=== PATIENT | male | born 1940 | race Caucasian/White ===

== ENCOUNTER 2017-10-16 17:52 | Outpatient (CLI) ==
[2016-07-21 18:36] VITALS: BMI 20.7
== END 2017-10-16 17:53 | disposition home or self-care (01) ==
LOC: NONPT 17:52
PROVIDERS: ATTEND General Practice
DX: E53.8 Deficiency of other specified B group vitamins (principal); F01.50 Vascular dementia, unspecified severity, without behavioral disturbance, psychotic disturbance, mood disturbance, and anxiety; I10 Essential (primary) hypertension; R31.9 Hematuria, unspecified; R68.89 Other general symptoms and signs
CPT/HCPCS: 36415; 80053; 80061; 82525; 83735; 84443; 85025

== ENCOUNTER 2017-12-31 14:09 | Outpatient (RCR) ==
[2016-07-21 18:36] VITALS: BMI 20.7
--- NOTE | 2018-01-01 15:27 | RS.OPPTEV2 ---
Date of Note: 12/31/17 Visit #: 1 Date of Evaluation: 12/31/17 Payer Source: MEDICARE Surgery Performed?: No Treatment Diagnosis: cerebrovascular small vessel disease, dementia, abnormality of gait History of Condition/Mechanism of Injury:: reports that pt has been having increased difficulty with amb and having frequent falls for past 2 years. Prior Level of Function.....Patient was independent with: Ambulation/Mobility Level of Function: pt amb in home short distances independently holding to furniture, requires assist with ADL's. pt has 2 steps to enter home without HR. Functional Limitations: Self Care, ADL's, Reaching, Carrying, Standing, Bending , Squatting, Ambulation, Community Access/Integration Current Subjective/complaints:: pt reports that he has trouble walking due to R knee pain and low back pain. pt's states pt stays on the couch all day and has "shaking"episodes when standing up after being on couch. Treatment Side (optional): N/A *Precautions: fall precautions as well as pt with dementia hx of wandering Medical History Medical History: Hypertension, Dementia, Arthritis Surgical History Comments:: CEA, hernia repair, appey, cataracts, hemmorhoids Smoking Status: Former smoker Hx Home Medications: melatonin, quentiaprine, memantine, clopidogrel, lexapro, aspirin, calcium, simvastatin, probiotic, Patient's Goals: to walk better and have less falls. Pain Assessment - Pain Description Pain Location: low back pain, R knee Pain Description: Aching, Chronic Current Pain Intensity: 4 Other Comments regarding Pain:: pt with aching pain in lumbar spine, pt with flexed posture, requires multiple verbal cues to sit up tall. Functional Outcome Measure Tinetti: 8 (71%) - G Codes & Severity Modifier G Codes & Modifier: mobility current CL. mobility goal CJ Source of G Code score: tinetti score Observation - Observation Posture: Forward Head, Rounded Shoulders, Increased Thoracic Kyphosis, Decreased Lumbar Lordosis Gait - Gait Pattern General Gait Pattern Observation: Crouched Gait, Shuffling Step, Decrease Stride Lngth (R), Decrease Stride Lngth (L) Gait Comments: pt amb with flexed posture, decreased step length and requires constant cues to keep walker close as well as to stand tall. General Range of Motion: BUE WFL's. LLE WFL's. RLE knee flex WFL's, ext -10 Muscle Strength: BUE 4+/5. LLE hip flex 4-/5, knee flex/ext 4-/5, ankle Df/PF 4 /5. RLE hip flex Palpation Palpation Findings: Tenderness Comments:: tenderness to palpation lumbar spine. Sensation - Sensation Right Upper Extremity: Intact/Normal Left Upper Extremity: Intact/Normal Right Lower Extremity: Intact/Normal Left Lower Extremity: Intact/Normal Balance - Sitting Balance Static Sitting Balance: Good Dynamic Sitting Balance: Fair - Standing Balance Static Standing Balance: Poor Dynamic Standing Balance: Poor - Comments Balance Assessment Comments: tinetti score 8. pt with flexed posture. Interventions - Exercise/Activities/Manual Therapy Exercises/Activities: pt performed AP, isometric hip add, LAQ, seated hip flex Manual Therapy: n/a HOME EXERCISE PROGRAM: pt given written HEP including AP, isometric hip add, LAQ , seated hip flex - Charges Timed Code Treatment Minutes: 52 Total Treatment Time: 60 Procedures billed for this date of service:: eval med EVALUATION COMPLEXITY LEVEL EVALUATION COMPLEXITY LEVEL: HISTORY: Medium (dementia, OA, HTN,), EXAM OF BODY SYSTEMS: Medium (pain, balance, gait, strength), CLINICAL PRESENTATION: Medium ( evolving), CLINICAL DECISION MAKING: Medium Assessment Assessment: pt presents with decreased strength, balance, gait safety. pt with difficulty recalling safety precautions due to cognitive status. Feel pt would benefit from skilled PT for therex for strengthening, balance and gait training to improve functional mobility Patient Education: Home Exercise Program, Education of Plan of Care Rehab Potential: Good Problems/Comments: Discussion with patient to try to sit in different chair at home to decrease LBP. Also advised pt to walk 3 x a day in home. Short Term Goals Goal #1: pt transfer sup to/from sit to/from stand CGA Goal to be met by: 01/21/18 Goal #2: pt amb with rwx in dept with improved posture, and no LOB CGA Goal to be met by: 01/21/18 Goal #3: pt with improved dyn stand balance as noted by tinetti score Goal to be met by: 01/21/18 Goal #4: Improved BLE strength 4/5 Goal to be met by: 01/21/18 Alf Goals Goal #1: pt amb from car to PT dept with rwx with no LOB SBA of Goal to be met by: 02/11/18 Goal #2: pt with improved R knee ext -5, to improve gait pattern Goal to be met by: 02/11/18 Goal #3: pt with improved dyn stand balance tinetti score 20/28 Goal to be met by: 02/11/18 Goal #4: pt/ independent with HEP Goal to be met by: 02/11/18 Plan - Treatment to be Provided Procedures: Therapeutic Exercises, Therapeutic Activity, Gait Training, Neuromuscular Rehab, Massage, Patient Education Modalities: Electrical Stimulation, Ultrasound/Phonophoresis, Cryotherapy, Hot Packs - Treatment Plan Frequency: 2-3x per week Duration: 6 weeks ORDER # VISITS AND/OR THROUGH DATE: 02/11/18 - Treatment Code (1) Impairment of balance Code(s): R26.89 - OTHER ABNORMALITIES OF GAIT AND MOBILITY (2) Gait difficulty Code(s): R26.9 - UNSPECIFIED ABNORMALITIES OF GAIT AND MOBILITY (3) General weakness Code(s): R53.1 - WEAKNESS (4) Low back pain Code(s): M54.5 - LOW BACK PAIN Qualifiers: Chronicity: chronic Back pain laterality: bilateral Sciatica presence: without sciatica Qualified Code(s): M54.5 - Low back pain; G89.29 - Other chronic pain (5) Right knee pain Code(s): M25.561 - PAIN IN RIGHT KNEE Qualifiers: Chronicity: chronic Qualified Code(s): M25.561 - Pain in right knee; G89.29 - Other chronic pain
== END 2018-01-01 23:59 | disposition short-term general hospital (02) ==
PROVIDERS: ATTEND Physician Assistant
DX: R26.89 Other abnormalities of gait and mobility (principal); R53.1 Weakness; M54.5 Low back pain; M25.561 Pain in right knee; G89.29 Other chronic pain

== ENCOUNTER 2018-01-26 11:00 | Outpatient (RCR) ==
[2016-07-21 18:36] VITALS: BMI 20.7
--- NOTE | 2018-01-02 15:16 | RS.OPPTDN ---
Subjective Date of Note: 01/02/18 Visit #: 2 Date of Evaluation: 12/31/17 Payer Source: MEDICARE Treatment Diagnosis: cerebrovascular small vessel disease, dementia, abnormality of gait Current Subjective/complaints:: Patient pleasant,reports his legs get tired easily,and the R knee hurts at times,pointing to te medial aspect of the R knee. *Precautions: fall precautions as well as pt with dementia hx of wandering Pain Assessment - Pain Description Pain Location: R knee Pain Description: Dull, Aching Current Pain Intensity: not rated Interventions - Exercise/Activities/Manual Therapy Exercises/Activities: 45 mins. total pf therapeutic exercises and gait training, emphasizing placement of R/W with transfers and when changing direction.LE exercises of 3/15 reps . both LE's on leg press @ 30 # resistance for 2 sets,15 # for one set.2/15 LAQ's with 2 # resistance.Transfer and gait training with R/ W for approx. 40 ' x 3 with min assist , mod. assist with turning.Seated exercises of scapular pro/retraction motion with small bolster up/down the spine. Total minutes of Exercise: 45 Manual Therapy: n/a Total minutes of Manual Therapy: 0 HOME EXERCISE PROGRAM: pt given written HEP including AP, isometric hip add, LAQ , seated hip flex - Charges Timed Code Treatment Minutes: 45 Total Treatment Time: 45 Procedures billed for this date of service:: ex 3 Assessment: Patient requires cues for posture and safety frequently due to history of dementia,tends to walk with the walker too far in front of him.He is completely outside the base of walker with turning.He also needs cues to stand more erect.He is pleasant and cooperative ,but forgetful regarding safety issues. Patient Education: Body/Joint mechanics, Home Safety Short Term Goals Goal #1: pt transfer sup to/from sit to/from stand CGA Goal to be met by: 01/21/18 Goal #2: pt amb with rwx in dept with improved posture, and no LOB CGA Goal to be met by: 01/21/18 Goal #3: pt with improved dyn stand balance as noted by tinetti score 16/28 Goal to be met by: 01/21/18 Goal #4: Improved BLE strength 4/5 Goal to be met by: 01/21/18 Manager [employer] Goals Goal #1: pt amb from car to PT dept with rwx with no LOB SBA of Goal to be met by: 02/11/18 Goal #2: pt with improved R knee ext -5, to improve gait pattern Goal to be met by: 02/11/18 Goal #3: pt with improved dyn stand balance tinetti score Goal to be met by: 02/11/18 Goal #4: pt/ independent with HEP Goal to be met by: 02/11/18 Plan PLAN OF CARE EXPIRES ON:: 02/11/18 ORDER # VISITS AND/OR THROUGH DATE: 02/11/18 PLAN: Continue PT to strengthen core and LE's for safer gait .
--- NOTE | 2018-01-06 15:04 | RS.OPPTDN ---
Subjective Date of Note: 01/06/18 Visit #: 3 Date of Evaluation: 12/31/17 Payer Source: MEDICARE Treatment Diagnosis: cerebrovascular small vessel disease, dementia, abnormality of gait Current Subjective/complaints:: Patient reports the R knee was sore from exercises done last session ,but ," not too bad . " *Precautions: fall precautions as well as pt with dementia hx of wandering Pain Assessment - Pain Description Pain Description: muscle soreness in legs Interventions - Exercise/Activities/Manual Therapy Exercises/Activities: 45 mins. total pf therapeutic exercises and gait training, emphasizing placement of R/W with transfers and when changing direction.LE exercises of 3/15 reps . both LE's on leg press @ 15 # resistance for 5 sets,15 # for one set.2/15 LAQ's with 2 # resistance.Transfer and gait training with R/ W for approx. 80 ' x 2 with min assist , min assist with turning.Seated exercises of scapular pro/retraction motion with small bolster up/down the spine ,using green theraband for resistance.Seated overhead flexion of UE's using 1 # wand ,3 / 10 reps.Transfers into automobile with min.assist of 1,cues to place hips onto seat before placing his foot into the vehicle. Total minutes of Exercise: 45 Manual Therapy: n/a Total minutes of Manual Therapy: 0 HOME EXERCISE PROGRAM: pt given written HEP including AP, isometric hip add, LAQ , seated hip flex - Charges Timed Code Treatment Minutes: 45 Total Treatment Time: 50 Procedures billed for this date of service:: ex 3 Assessment: Patient tolerates exercises fairly well today ,cues to stay on task due to dementia.He also needs cues to step closer to walker for more energy efficient gait and more erect posture. Patient Education: Body/Joint mechanics, Home Safety, Education of Plan of Care Short Term Goals Goal #1: pt transfer sup to/from sit to/from stand CGA Goal to be met by: 01/21/18 Progress towards Goal:: Progressing Goal #2: pt amb with rwx in dept with improved posture, and no LOB CGA Goal to be met by: 01/21/18 Progress towards Goal:: Progressing Goal #3: pt with improved dyn stand balance as noted by tinetti score Goal to be met by: 01/21/18 Goal #4: Improved BLE strength 4/5 Goal to be met by: 01/21/18 [employer]ing Production Manager Goals Goal #1: pt amb from car to PT dept with rwx with no LOB SBA of Goal to be met by: 02/11/18 Goal #2: pt with improved R knee ext -5, to improve gait pattern Goal to be met by: 02/11/18 Goal #3: pt with improved dyn stand balance tinetti score Goal to be met by: 02/11/18 Goal #4: pt/ independent with HEP Goal to be met by: 02/11/18 Plan PLAN OF CARE EXPIRES ON:: 02/11/18 ORDER # VISITS AND/OR THROUGH DATE: 02/11/18 PLAN: Continue PT to increase LE and trunk strength for safer transfers and gait.
--- NOTE | 2018-01-12 15:24 | RS.OPPTDN ---
Subjective Date of Note: 01/12/18 Visit #: 4 Date of Evaluation: 12/31/17 Payer Source: MEDICARE Treatment Diagnosis: cerebrovascular small vessel disease, dementia, abnormality of gait Current Subjective/complaints:: Patient pleasant.He does c/o R knee soreness today ,pointing to the medial aspect of the knee.His reports he fell over the weekend without injury.He does have bruised area on the posterior left thigh. *Precautions: fall precautions as well as pt with dementia hx of wandering Pain Assessment - Pain Description Pain Description: Aching Current Pain Intensity: unable to rate Interventions - Exercise/Activities/Manual Therapy Exercises/Activities: 45 mins. total pf therapeutic exercises, baalnce exercises ,and gait training,emphasizing placement of R/W with transfers and when changing direction.LE exercises of 3/15 reps . with 2 # ,seated hip flexion, followed by UE wand exercises of overhead flexion for trunk extension.Standing / reaching for cones with walker and min. assist.Gait training with R/W and minn.assist of 1 ,cues to stand closer to walker and extend the trunk. Total minutes of Exercise: 45 Manual Therapy: n/a Total minutes of Manual Therapy: 0 HOME EXERCISE PROGRAM: pt given written HEP including AP, isometric hip add, LAQ , seated hip flex - Charges Timed Code Treatment Minutes: 45 Total Treatment Time: 50 Procedures billed for this date of service:: ex 3 Assessment: Patient has increased flexion at knees and trunk today,fatigues more easily with exercises tyoday.His safety awareness is poor today,requiring more cues for hand placement before standing and also to step closer to walker. Patient Education: Education of Plan of Care Short Term Goals Goal #1: pt transfer sup to/from sit to/from stand CGA Goal to be met by: 01/21/18 Progress towards Goal:: Progressing Goal #2: pt amb with rwx in dept with improved posture, and no LOB CGA Goal to be met by: 01/21/18 (flexed at knees and waist today) Progress towards Goal:: No Change Goal #3: pt with improved dyn stand balance as noted by tinetti score 16/28 Goal to be met by: 01/21/18 Goal #4: Improved BLE strength 4/5 Goal to be met by: 01/21/18 Forensic Locksmith Goals Goal #1: pt amb from car to PT dept with rwx with no LOB SBA of Goal to be met by: 02/11/18 Goal #2: pt with improved R knee ext -5, to improve gait pattern Goal to be met by: 02/11/18 Progress towards goal: No Change Goal #3: pt with improved dyn stand balance tinetti score 20/ Goal to be met by: 02/11/18 Goal #4: pt/ independent with HEP Goal to be met by: 02/11/18 Plan PLAN OF CARE EXPIRES ON:: 02/11/18 ORDER # VISITS AND/OR THROUGH DATE: 02/11/18 PLAN: Continue PT to strengthen core and LE's for safer gait ,reduce risks of falls.
--- NOTE | 2018-01-15 15:22 | RS.OPPTDN ---
Subjective Date of Note: 01/15/18 Visit #: 5 Date of Evaluation: 12/31/17 Payer Source: MEDICARE Treatment Diagnosis: cerebrovascular small vessel disease, dementia, abnormality of gait Current Subjective/complaints:: Patient has more flexed psture ,increased difficulty with gait today.Patient also appears more disoriented at times today. *Precautions: fall precautions as well as pt with dementia hx of wandering Interventions - Exercise/Activities/Manual Therapy Exercises/Activities: 45 mins. total ,gait training with rolling walker,100 ' x 2.Ther. ex including leg press @ 15 # resistance3/15 reps.Seated hip flexion and LAQ's and 2 # rsistance.UE wand exercises for over head flexion .5 mins. of ball toss overhead for trunk extension and reducing flexed posture .Auto transfers withCGA of 1,cues for safety. Total minutes of Exercise: 45 Manual Therapy: n/a Total minutes of Manual Therapy: 0 HOME EXERCISE PROGRAM: pt given written HEP including AP, isometric hip add, LAQ , seated hip flex - Charges Timed Code Treatment Minutes: 45 Total Treatment Time: 55 Procedures billed for this date of service:: ex 2,gait training Assessment: Patient has increased difficulty following commands today, especially for safe use of walker.he is currently high risk for falls if unassisted due to LE wekness and flexed posture when standing.He c/o R medial knee pain with walking or light resistance on leg press. Short Term Goals Goal #1: pt transfer sup to/from sit to/from stand CGA Goal to be met by: 01/21/18 Progress towards Goal:: No Change Goal #2: pt amb with rwx in dept with improved posture, and no LOB CGA Goal to be met by: 01/21/18 (flexed at knees and waist today) Progress towards Goal:: No Change Goal #3: pt with improved dyn stand balance as noted by tinetti score 28 Goal to be met by: 01/21/18 Goal #4: Improved BLE strength 4/5 Goal to be met by: 01/21/18 Progress towards Goal:: No Change [facility] Goals Goal #1: pt amb from car to PT dept with rwx with no LOB SBA of Goal to be met by: 02/11/18 Goal #2: pt with improved R knee ext -5, to improve gait pattern Goal to be met by: 02/11/18 Progress towards goal: No Change Goal #3: pt with improved dyn stand balance tinetti score Goal to be met by: 02/11/18 Goal #4: pt/ independent with HEP Goal to be met by: 02/11/18 Plan PLAN OF CARE EXPIRES ON:: 02/11/18 ORDER # VISITS AND/OR THROUGH DATE: 02/11/18 PLAN: Continue PT,educate on patient safety and exercises as patient can tolerate.He is unable to recall HEP independently due to dementia.
--- NOTE | 2018-01-19 15:19 | RS.OPPTDN ---
Subjective Date of Note: 01/19/18 Visit #: 6 Date of Evaluation: 12/31/17 Payer Source: MEDICARE Treatment Diagnosis: cerebrovascular small vessel disease, dementia, abnormality of gait Current Subjective/complaints:: Patient reports feeling better today,appears more alert than last session .His reports he did not have any falls over the weekend. *Precautions: fall precautions as well as pt with dementia hx of wandering Interventions - Exercise/Activities/Manual Therapy Exercises/Activities: 50 mins. total ,gait training with rolling walker,100 ' x 2.Ther. ex including leg press @ 30,45 and # resistance3/10 reps. 1 set of 10 reps @ 60 #Seated hip flexion and LAQ's and 2 # rsistance.UE wand exercises for over head flexion ,and postural pullbacks using black theraband.Auto transfers with CGA of 1,cues for safety. Total minutes of Exercise: 50 Manual Therapy: n/a Total minutes of Manual Therapy: 0 HOME EXERCISE PROGRAM: pt given written HEP including AP, isometric hip add, LAQ , seated hip flex - Charges Timed Code Treatment Minutes: 50 Total Treatment Time: 60 Procedures billed for this date of service:: gait,ther. act,ex 1 Assessment: Patient has improved trunk extension ,also tolerates increased resistance with minimal R knee soreness,which lessened as the exercises progressed.He still requires cues to step closer to R/W , but now self - corrects at times without verbal cues.He is motivated to improve.HEP discussed with as patient has dementia,and difficulty with recall of exercises. Patient Education: Education of diagnosis, Body/Joint mechanics, Home Exercise Program, Home Safety, Activity Modification, Education of Plan of Care Patient demonstrates compliance with HEP?: Yes Short Term Goals Goal #1: pt transfer sup to/from sit to/from stand CGA Goal to be met by: 01/21/18 Progress towards Goal:: Progressing Goal #2: pt amb with rwx in dept with improved posture, and no LOB CGA Goal to be met by: 01/21/18 (flexed at knees and waist today) Progress towards Goal:: Progressing Goal #3: pt with improved dyn stand balance as noted by tinetti score 16/28 Goal to be met by: 01/21/18 Progress towards Goal:: Progressing Goal #4: Improved BLE strength 4/5 Goal to be met by: 01/21/18 Progress towards Goal:: Progressing Correction Goals Goal #1: pt amb from car to PT dept with rwx with no LOB SBA of Goal to be met by: 02/11/18 Goal #2: pt with improved R knee ext -5, to improve gait pattern Goal to be met by: 02/11/18 Progress towards goal: No Change Goal #3: pt with improved dyn stand balance tinetti score Goal to be met by: 02/11/18 Goal #4: pt/ independent with HEP Goal to be met by: 02/11/18 Progress towards goal: Progressing Plan PLAN OF CARE EXPIRES ON:: 02/11/18 ORDER # VISITS AND/OR THROUGH DATE: 02/11/18 PLAN: Continue PT to educate and patient on home safety and energy conservation for safer transfers and gait.
--- NOTE | 2018-01-22 09:21 | RS.CXNS ---
Date of scheduled appointment: 01/22/18 Type: Cancel Reason for Cancel/NS: Schedule conflict( called ).
--- NOTE | 2018-01-26 12:01 | RS.OPPTDN ---
Subjective Date of Note: 01/26/18 Visit #: 7 Date of Evaluation: 12/31/17 Payer Source: MEDICARE Treatment Diagnosis: cerebrovascular small vessel disease, dementia, abnormality of gait Current Subjective/complaints:: Patient 's present ,we discussed POC,as patient progress is limited due to dementia.She is very supportive ,plan to see patient one more session,review all goals,give copies of HEP,do balance assessment. *Precautions: fall precautions as well as pt with dementia hx of wandering Interventions - Exercise/Activities/Manual Therapy Exercises/Activities: 50 mins. total ,gait training with rolling walker , progressed to straight cane,UE /LE strengthening with 3 # wand for UE's,3 # weight for LE's.Multiple sit to stand with CGA of 1,then balance/reaching activities using cones with gait belt and CGAof 1.Reviewed posture with present. Total minutes of Exercise: 50 Manual Therapy: n/a Total minutes of Manual Therapy: 0 HOME EXERCISE PROGRAM: pt given written HEP including AP, isometric hip add, LAQ , seated hip flex - Charges Timed Code Treatment Minutes: 50 Total Treatment Time: 60 Procedures billed for this date of service:: ex,gait,ther. act. Assessment: Patient progressing,has better standing posture,tolerates using cane well,less cues for safety with transfers.His is present today,very supportive and motivated to help.She has good understanding of safety and HEP. Patient Education: Body/Joint mechanics, Home Exercise Program, Home Safety, Activity Modification, Education of Plan of Care Patient demonstrates compliance with HEP?: Yes (with assistance) Short Term Goals Goal #1: pt transfer sup to/from sit to/from stand CGA Goal to be met by: 01/21/18 Progress towards Goal:: Partially Met Goal #2: pt amb with rwx in dept with improved posture, and no LOB CGA Goal to be met by: 01/21/18 Progress towards Goal:: Partially Met Goal #3: pt with improved dyn stand balance as noted by tinetti score 16/28 Goal to be met by: 01/21/18 Progress towards Goal:: Progressing Goal #4: Improved BLE strength 4/5 Goal to be met by: 01/21/18 Progress towards Goal:: Partially Met [facility] Goals Goal #1: pt amb from car to PT dept with rwx with no LOB SBA of Goal to be met by: 02/11/18 Progress towards goal: Progressing Goal #2: pt with improved R knee ext -5, to improve gait pattern Goal to be met by: 02/11/18 (due to arthritis ) Progress towards goal: No Change Goal #3: pt with improved dyn stand balance tinetti score 20/28 Goal to be met by: 02/11/18 Progress towards goal: Progressing Goal #4: pt/ independent with HEP Goal to be met by: 02/11/18 Progress towards goal: Partially Met Plan PLAN OF CARE EXPIRES ON:: 02/11/18 ORDER # VISITS AND/OR THROUGH DATE: 02/11/18 PLAN: Continue PT ,initiate D/C plan next session.
--- NOTE | 2018-01-29 11:01 | RS.OPPTDC ---
Date of Discharge: 01/26/18 Date of Evaluation: 12/31/17 Number of Visits: 7 Treatment Diagnosis: cerebrovascular small vessel disease, dementia, abnormality of gait Current Level of Function: tinetti score 13/28 improved from 03/31 upon eval. pt amb with rwx progressing to cane with CGA. pt transfers sit to/from stand CGA. pt continued difficulty with carryover of instructions due to cognitive deficits. Current Complaints/Gains: pt and feel pt has improved and states she is helping him with HEP and amb. pt requested to dc PT as of 01/26/18 Functional Outcome Measure Tinetti: 13 (54%) - G Codes & Severity Modifier G Codes & Modifier: mobility goal CJ. mobility DC CK Source of G Code score: tinetti score Observation - Observation Posture: Forward Head, Rounded Shoulders, Increased Thoracic Kyphosis, Decreased Lumbar Lordosis Handedness: Right Gait - Gait Pattern General Gait Pattern Observation: Crouched Gait, Shuffling Step, Decrease Stride Lngth (R), Decrease Stride Lngth (L) Gait Comments: pt amb with rwx and progressed to cane with CGA. General Range of Motion: WFL's Muscle Strength: WFL's Interventions - Exercise/Activities/Manual Therapy Exercises/Activities: n/a Manual Therapy: n/a HOME EXERCISE PROGRAM: pt given written HEP including AP, isometric hip add, LAQ , seated hip flex - Charges Timed Code Treatment Minutes: n/a Total Treatment Time: n/a Procedures billed for this date of service:: n/a Assessment Assessment: pt progressing toward goals. pt progressed with balance, gait, strength. pt continues to be limited due to cognitive deficits. Patient Education: Home Exercise Program, Education of Plan of Care Rehab Potential: Good Short Term Goals Goal #1: pt transfer sup to/from sit to/from stand CGA Goal to be met by: 01/21/18 Progress towards Goal:: Partially Met Goal #2: pt amb with rwx in dept with improved posture, and no LOB CGA Goal to be met by: 01/21/18 Progress towards Goal:: Partially Met Goal #3: pt with improved dyn stand balance as noted by tinetti score 1628 Goal to be met by: 01/21/18 Progress towards Goal:: Progressing Goal #4: Improved BLE strength 4/5 Goal to be met by: 01/21/18 Progress towards Goal:: Partially Met [facility] Goals Goal #1: pt amb from car to PT dept with rwx with no LOB SBA of Goal to be met by: 02/11/18 Progress towards goal: Progressing Goal #2: pt with improved R knee ext -5, to improve gait pattern Goal to be met by: 02/11/18 (due to arthritis ) Progress towards goal: No Change Goal #3: pt with improved dyn stand balance tinetti score Goal to be met by: 02/11/18 Progress towards goal: Progressing Goal #4: pt/ independent with HEP Goal to be met by: 02/11/18 Progress towards goal: Partially Met Plan Reason for Discharge:: Maximum Potential Met
== END 2018-01-31 23:59 ==
PROVIDERS: ATTEND Physician Assistant
DX: R26.89 Other abnormalities of gait and mobility (principal)

== ENCOUNTER 2018-04-17 15:16 | Outpatient (CLI) | payer OTHER ==
[2016-07-21 18:36] VITALS: BMI 20.7
== END 2018-04-17 15:17 | disposition home or self-care (01) ==
LOC: FCC-LAB 15:16
PROVIDERS: ATTEND General Practice
DX: I10 Essential (primary) hypertension (principal); I65.29 Occlusion and stenosis of unspecified carotid artery; R68.89 Other general symptoms and signs; F52.8 Other sexual dysfunction not due to a substance or known physiological condition; F01.50 Vascular dementia, unspecified severity, without behavioral disturbance, psychotic disturbance, mood disturbance, and anxiety; E53.8 Deficiency of other specified B group vitamins; Z79.899 Other long term (current) drug therapy
CPT/HCPCS: 36415; 80053; 80061; 81001; 85025; 87086; 87186

== ENCOUNTER 2018-04-29 13:03 | Inpatient (IN) | payer OTHER ==
--- NOTE | 2018-04-29 14:18 | CT ---
EXAM: CT THORAX HISTORY: Cough. Labored breathing. TECHNIQUE: CT thorax without intravenous contrast. Multiplanar images presented. COMPARISON: 06/13/2016 FINDINGS: Heart size is normal. No pericardial effusion. Moderately severe atherosclerotic disease. 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 Chronically elevated right hemidiaphragm. There is mild increased density and a few discoid opacitie s in the right lower lobe which may be related atelectasis from the diaphragmatic elevation. Minimal pneumonia at this level not completely excluded. Lungs are otherwise clear. Normal vascularity. N o pleural fluid or pneumothorax. The bones reveal degenerative disc and facet disease of the thoracic spine. IMPRESSION: 1. Questionable subtle pneumonia in the right base versus atelectasis from a chronically elevated ri ght hemidiaphragm. No pleural fluid or vascular congestion. 2. Moderately severe atherosclerosis. 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
--- NOTE | 2018-04-29 15:23 | ED.PDOC ---
General ED Provider: Dr. CARISSA POLO Chief Complaint: Weakness Stated Complaint: GENERALIZED WEAKNESS /FAILURE TO THRIVE Time Seen by Physician: 13:00 Mode of Arrival: Walk-In Information Source: Family Exam Limitations: No limitations [facility] and Triage Documentation Reviewed and Agree: Yes Does patient meet sepsis criteria?: No System Inflammatory Response Syndrome: Not Applicable Sepsis Protocol: For patient's 13 years and over: Temp is 96.8 and below OR 101 and greater Pulse >90 BPM Resp >20/minute Acutely Altered Mental Status Are patient's symptoms suggestive of a new infection, such as: -Pneumonia -Skin, Soft Tissue -Endocarditis -UTI -Bone, Joint Infection -Implantable Device -Acute Abdominal Infection -Wound Infection -Meningitis -Blood Stream Catheter Infection -Unknown Neurological Complaint Exam - Weakness Complaint/Exam Last Known Well: FAILURE TO THRIVE , FOR 1 YEAR Onset: Gradual Duration: 1 YEAR Symptoms Are: Still present Timing: Constant Episodes Lasting: Weeks Initial Severity: Moderate Current Severity: Moderate Character: Reports: Weak Aggravating: Reports: None Alleviating: Reports: None Associated Signs and Symptoms: Denies: Nausea, Vomiting, Diaphoresis, Tinnitus, Chest pain, Short of air, Palpitations, Unsteady gait, GI blood loss, Visual changes, Decreased oral intake, Change in medication, Change in diet, OTC meds, Loss of balance Related History: Similar episode Cardiac Risk Factors: Reports: None CVA Risk Factors: Reports: None Related Surgical History: Reports: None JVD Present: No Carotid Bruit Present: No [place] Coma Scale (see protocol): 15 Nystagmus Present: No Gag Reflex Present: Yes Meningeal Signs Positive: No Focal Weakness: Present: None Focal Sensory Loss: Present: None Gait: Unable [id number]: Normal Findings Babinski Sign: Negative Right, Negative Left Differential Diagnoses: Dysrhythmia, Hypovolemia, Metabolic abnormalities, Vasovagal reaction Quality Indicators for Cardiac Chest Pain: EKG in 10min. Quality Indicators for AMI: EKG in 10min. Quality Indicator For Non-Traumatic Chest Pain/Syncope: EKG Performed Review of Systems - Review Of Systems Constitutional: Reports: Malaise, Weakness Eyes: Reports: No symptoms Ears, Nose, Mouth, Throat: Reports: No symptoms Respiratory: Reports: No symptoms Cardiac: Reports: No symptoms GI: Reports: No symptoms : Reports: No symptoms Musculoskeletal: Reports: No symptoms Skin: Reports: No symptoms Neurological: Reports: No symptoms Endocrine: Reports: No symptoms Hematologic/Lymphatic: Reports: No symptoms All Other Systems: Reviewed and Negative Past Medical History - Past Medical History Previously Healthy: No Endocrine: Reports: Unknown Cardiovascular: Reports: Unknown Respiratory: Reports: None Hematological: Reports: None Gastrointestinal: Reports: None Genitourinary: Reports: None Neuro/Psych: Reports: None Musculoskeletal: Reports: None Cancer: Reports: None - Surgical History General Surgical History: Reports: Unknown - Family History Family History: Reports: Unknown - Social History Smoking Status: Former smoker Hx Substance Use: No Alcohol Screening: None Physical Exam - Physical Exam Appearance: Well-appearing, No pain distress, Well-nourished Eyes: JAMIE, EOMI, Conjunctiva clear ENT: Dry mucosa Respiratory: Airway patent, Breath sounds clear, Breath sounds equal, Respirations nonlabored Cardiovascular: RRR, Pulses normal, No rub, No murmur GI/: Soft, Nontender, No masses, Bowel sounds normal, No Organomegaly Musculoskeletal: Normal strength, ROM intact, No edema, No calf tenderness Skin: Warm, Dry, Normal color Neurological: Sensation intact, Motor intact, Reflexes intact, Cranial nerves intact, Alert, Oriented Psychiatric: Affect appropriate, Mood appropriate Interpretation - Radiology Interpretation Radiology Interpretation By: Radiologist Radiology Results: No acute changes (QUESTIONABLE PNEUMONIA) Critical Care Note - Critical Care Note Total Time (mins): 0 Course - Course Hematology/Chemistry: 04/29/18 13:35 04/29/18 13:35 Orders, Labs, Meds: Lab Review 04/29/18 04/29/18 04/29/18 13:35 13:35 14:10 WBC 6.11 RBC 5.09 Hgb 13.8 L Hct 42.6 MCV 83.7 MCH 27.1 MCHC 32.4 RDW Coeff of Sea 15.1 H Plt Count 259 Immature Gran % (Auto) 0.2 Neut % (Auto) 36.8 Lymph % (Auto) 48.6 [place] % (Auto) 8.7 Eos % (Auto) 4.9 Baso % (Auto) 0.8 Immature Gran # (Auto) 0.0 Neut # (Auto) 2.3 Lymph # (Auto) 3.0 [place] # (Auto) 0.5 Eos # (Auto) 0.3 Baso # (Auto) 0.1 Sodium 141.6 Potassium 3.68 Chloride 107.5 H Carbon Dioxide 27.9 Anion Gap 9.88 BUN 17.0 Creatinine 1.45 H Estimated GFR (MDRD) 47.00 BUN/Creatinine Ratio 11.72 Glucose 132.4 H Calcium 9.46 Total Bilirubin 0.35 AST 21.5 ALT 13.6 Alkaline Phosphatase 43.1 L Total Protein 7.09 Albumin 4.15 Globulin 2.94 Albumin/Globulin Ratio 1.41 Urine Color Yellow Urine Clarity Clear Urine pH 6.0 Ur Specific [place] >=1.030 Urine Protein Trace Urine Glucose (UA) Negative Urine Ketones Negative Urine Blood Trace-intact Urine Nitrite Positive Urine Bilirubin Negative Urine Urobilinogen 0.2 Ur Leukocyte Esterase 2+ Urine Microscopic RBC 0-2 Urine Microscopic WBC Tntc Ur Squamous Epith Cells Not present Urine Bacteria 1+ Urine Mucus 3+ Orders Category Date Time Status EKG-(ED ONLY) Stat CARDIO 04/29/18 13:25 Completed CBC W/ AUTO DIFF Stat LAB 04/29/18 13:35 Completed COMPREHENSIVE METABOLIC PANEL Stat LAB 04/29/18 13:35 Completed URINALYSIS C & S IF INDICATED Stat LAB 04/29/18 14:10 Completed URINE CULTURE Stat LAB 04/29/18 14:[address] CHEST W/O CONTRAST Stat RADS 04/29/18 13:25 Completed Vital Signs: Temp Pulse Resp BP Pulse Ox 04/29/18 13:03 97.6 F 117 H 20 115/66 95 Departure - Departure Time of Disposition: 15:23 Disposition: ADMITTED INPATIENT Discharge Problem: Weakness UTI (urinary tract infection) Qualifiers: Urinary tract infection type: site unspecified Hematuria presence: without hematuria Qualified Code(s): N39.0 - Urinary tract infection, site not specified Failure to thrive Qualifiers: Failure to thrive age range: in adult Qualified Code(s): R62.7 - Adult failure to thrive Instructions: Urinary Tract Infection in Men (ED) Condition: Good Pt referred to PMD for follow-up: Yes IPMP verified?: No Allergies/Adverse Reactions: Allergies No Known Allergies Allergy (Verified 04/29/18 13:14) Home Medications: Ambulatory Orders Cholecalciferol (Vitamin D3) [Vitamin D] 1 cap PO DAILY 06/01/13 Levomefolate/B6/B12/Algal Oil [Metanx Capsule] 1 tab PO DAILY 06/01/13 Aspirin [Aspirin Chewable] 81 mg PO DAILYWM 12/26/13 Pantoprazole Sodium [Protonix] 40 mg PO QDAC 12/26/13 Calcium Carbonate [Calcium] 500 mg PO DAILY #2 02/26/16 Medroxyprogesterone Acetate 10 mg PO DAILY 10/09/16 Vitamin B Complex Vit C No.4 [Super B Complex] 150 mg PO DAILY 01/13/17 Cimetidine [Tagamet Hb] 300 mg PO BID 02/11/18
[2018-04-29] MEDS ORDERED: SODIUM CHLORIDE IV SCH (15:30)
[2018-04-29] MEDS ORDERED: TYLENOL PO PRN (15:30)
[2018-04-29] MEDS ORDERED: ROCEPHIN ONE (15:53)
[2018-04-29] MEDS: ROCEPHIN 1 GM in SODIUM CHLORIDE 50 ML IV SCH (15:58)
[2018-04-29 16:39] VITALS: BMI 23.3
[2018-04-29] MEDS: SODIUM CHLORIDE 1,000 ML IV SCH (16:45)
--- NOTE | 2018-04-29 17:29 | PCM ---
- Chief Complaint Chief Complaint: Dementia, UTI, confusion (Chronic), Possible pneumonia. - History of Present Illness History of Present Illness: 77 yr old WM presented to ER on 04/29/18 with worsening fatigue, cognition, confusion, weakness. present in ER, has not been at bedside in hospital. I saw patient 04/29/18 in Room 122 early evening. He was seen in ER 1300 walk in with family. SIRS negative. ER noted FTT 1 year, gradual, present worsening over weeks to months. Weakness, w/o N/V/D, diaphoresis, tinnitus, chest pain, SOA, MORENO, PND, Orthopnea. No change in diet, no change in OTC meds, no travel. No loss of balance, no falls. Lives home with . Malaise and weakness progressing over last 1 year rapidly over last 1 week. Labs in ER showed normal WBC 6.11, mild anemia 13.8, 42.6 hct, plt 259. CMP showed sodium 141,6, K+ 3.68, cl 107.5. BUN 17 and Creatinine 1.45 (chronic and stable). Glucose was 132.4. UA showed + 2+ LE, Microscopic WBC, urine bact, mucus, +Nit, trace blood, SG 1.030. Contacted me at 15:23, I admitted him as inpatient to the hospital. Afebrile pulse was 117, RR 20, BP stable at 115/66 and WBC normal as above. Started on rocephin, reasonable to continue. Urine culture ordered. CT chest ordered w/ questionable subtle pneuomnia in right base versus atelectasis from chronically elevated right hemidiaphragm. NO plueral fluid. MOderately severe atherosclerosis, stable aneurysmal caliber of the dorsal aortic arch 3.2cm. EKG stable in Er. They dx adult FTT in ER. Previous weights in system supported 173.01 back to was 185 02/11/18 and 190 . History attempted, patient unable to complete history due to confusion. Pleasant and upbeat. No complaints. No SOA, no chest pain, no vision changes, no PND, no orthopnea, no other sx at present. He has no c/o. I will admit to inpatient status and address urine/pneumonia. I will try to get present to answer some questions. CURB-65 Score 2 points suggests inpatient vs obs Moderate group 6.8% 30 day mortality. Did not meet SIRS criteria. Port score 108. - Review of Systems Constitutional: No: fever, chills, weakness, sweats, fatigue, loss of appetite, other Eyes: No: blurred vision, double-vision, discharge, itching, pain, redness, photophobia, other Ears: No: pain, bleeding, drainage, ringing, hearing loss, other Nose: No: bleeding, congestion, discharge, other Throat: No: pain, swelling, voice change, other Mouth: No: bleeding, pain, swelling, other Respiratory: No: cough, shortness of air, wheeze, hemoptysis, pain with breathing, other Cardiovascular: No: chest pain, left arm pain, diaphoresis, PND, orthopnea, edema, palpitations, syncope, other Gastrointestinal: No: abdominal pain, other, nausea, vomiting, diarrhea, melena , hematemesis, hematochezia, dysphagia, constipation Genitourinary: No: dysuria, hematuria, frequency, incontinence, flank pain, penile discharge, testicular pain, testicular swelling, other Neurological: No: headache, other, dizziness, seizure, numbness, weakness, speech difficulty, problems with walking, tremor, fainting Musculoskeletal: No: pain, swelling in joints, other Skin: No: rash, pruritus, lacerations, wounds, bruising, other Immunology: No: hives, itching, frequent infections, difficulty healing, other Hematology: No: easy bruising, easy bleeding, swollen glands, other Endocrine: No: weight changes, cold intolerance, heat intolerance, excessive thirst, excessive hunger, polyuria, other Psychiatric: other (Patient is confused, uncertain of anything. No complaints, he feels fine, thinks he is in different hospital than ours. ). No: depression , anxiety, sleeplessness, hopelessness, suicidal, hallucinations - Past Medical History Past Medical History: Bronchitis, alzheimers dementia, CAD, Carotid stenosis, CKD, dyslipidemia, ED, Elevated PSA, h/o etoh abuse, HTN, depression, prostatitis. (OBTAINED FROM OUTPATIENT CHART). Patient Questioned unable to provide history. The phone number in chart [phone] is not a working number. - Past Surgical History Past Surgical History: Appendectomy, carotid Endarterectomy, hernia repair, Hemorrhoidectomy. Dr. Bicking vasular surgery. Patient Questioned, unable to provide history/confused. The phone number in chart [phone] is not a working number. - Allergies Allergies/Adverse Reactions: Allergies Allergy/AdvReac Type Severity Reaction Status Date / Time No Known Allergies Allergy Verified 04/29/18 13:14 - Medications Medications: Medications Generic Name Dose Route Start Last Admin Trade Name Freq PRN Reason Stop Dose Admin Acetaminophen 325 mg 04/29/18 15:30 Tylenol PO PRN [facility] Aspirin 81 mg 04/30/18 08:00 Aspirin Chewable PO DAILYWM [facility] Calcium/Vitamin D 1 each 04/30/18 09:00 Calcium 500 + Vit D 200 Mg Tablet PO DAILY DELMY Clopidogrel Bisulfate 75 mg 04/30/18 09:00 Plavix PO DAILY DELMY Ceftriaxone Sodium 1 gm/ 50 mls @ 75 mls/hr 04/29/18 15:30 04/29/18 15:58 Sodium Chloride IV 75 mls/hr DAILY DELMY Administration Sodium Chloride 1,000 mls @ 75 mls/hr 04/29/18 17:00 04/29/18 16:45 Sodium Chloride IV 75 mls/hr .[id number] DELMY Administration Non-Formulary Medication 10 mg 04/30/18 09:00 Medroxyprogesterone Acetate [Medroxyprogesterone Acetate] PO DAILY DELMY Non-Formulary Medication 1 each 04/29/18 21:00 Melatonin/Pyridoxine Hcl (B6) [Melatonin 10 Mg Tablet] PO BEDTIME DELMY Pantoprazole Sodium 40 mg 04/30/18 06:30 Protonix PO QDAC [facility] Quetiapine Fumarate 200 mg 04/29/18 21:00 Seroquel PO BID [facility] Saccharomyces Boulardii 250 mg 04/30/18 09:00 Florastor PO DAILY DELMY - Family History Past Family History: Patient Questioned, unable to provide history/confused. The phone number in chart [phone] is not a working number. - Social History Past Social History: Former smoker, ETOH 2 drinks per day, episcop[employer]. Patient Questioned, unable to provide history/confused. The phone number in chart [phone] is not a working number. - Vital Signs Temperature: 98.4 F Pulse Rate: 72 Respiratory Rate: 20 Blood Pressure: 115/66 O2 Sat by Pulse Oximetry: 99 - Body Composition Height: 6 ft Weight: 172 lb 9.951 oz Body Mass Index (BMI): 23.3 - Physical Examination HEENT: Constitutional: Appearance-No acute distress, Consistent with stated age. Orientation- Oriented x 3, alertGait-Normal pace, normal arm movement. Build and Nutrition-[average male] General- Patient is pleasant and cooperative with the interview and exam. Confused, cannot provide history. Integumentary: General-No rashes, ulcers or lesions. Palpation- Normal skin moisture/turgor. Skin is warm to touch, appropriate. Capillary refill is normal bilateral Upper and lower extremity. Head/Neck: Head- normocephalic and atraumatic. Neck- without visible/palpable lumps or pulsations. Palpation- No bony tenderness about head/neck along frontal, occipital, temporal, parietal, mastoid, jawline, zygoma, orbit or any other location. NO temporal artery tenderness. No TMJ tenderness. Neck Supple. Thyroid-No thyromegaly, no nodules Eye: Bilaterally PERRLA, EOMI. No discharge. Upper and lower eyelids are normal. Sclera/conjunctiva normal without discharge. Cornea is normal and clear. Lens is normal. Eyeball appears normal. No ciliary flushing, no conjunctival injection. ENMT: Pinna- normal without tenderness or erythema. External auditory canal Left- normal without erythema or discharge, no excessive cerumen. External auditory canal Right-normal without erythema or discharge, no excessive cerumen. TM left- Eastman/pearly, normal light reflex and anatomy TM Right- Eastman/ pearly, normal light reflex and anatomy Hearing Assessment-normal to conversational speech. Nose and sinus- No sinus tenderness along frontal/ maxillary region. External appearance normal and midline. Nares- bilateral quiet airflow, no discharge. Nasal mucosa- No bleeding noted and no ulcerations observed. Crum, moist. Turbinates non boggy. Lips- normal color, moist without cracks/lesions Oral Cavity/Palate- hard/soft palate intact without lesions, oral mucosa pink and moist. Oropharynx- no pharyngeal erythema, Uvula midline. No post nasal drip. No exudate. Salivary glands- Non tender to palpation CHEST/LUNG: Inspection- symmetric chest wall no pectus deformity. Normal effort , no distress, no use of accessory muscles. Palpation- nontender sternum, ribline. No abnormal pulsations. Auscultation- Breath sounds normal throughout all lung srinivasan. Normal tracheal sounds, Normal bronchial sounds overlying sternum, Bronchovessicular sounds normal between scapulae posteriorly, Normal vessicular breath sounds heard throughout periphery. Lungs are clear today. Adventitious sounds- No wheezes, rales, rhonchi. CARDIOVASCULAR: Carotid artery- normal, no bruits or abnormal pulsations. Jugular vein- no pulsations. Palpation/Percussion- Normal PMI, no palpable thrill Auscultation- Regular rate and rhythm. No murmur noted in sitting, supine positions. Extremities- no digital clubbing, cyanosis, edema, increased warmth. ABDOMEN: Inspection- normal and no visible pulsations. Normal contour. Auscultation- Bowel sounds normal, no abdominal bruits. Palpation/Percussion- soft, non-tender, no rebound tenderness, no rigidity (guarding), no jar tenderness, no masses. Liver-no hepatomegaly, Spleen no splenomegaly, Hernias - none. Rectal not examined. Peripheral Vascular: Upper extremity Left- Normal temperature with pink nailbeds and no ulcerations. Upper extremity Right- Normal temperature with pink nailbeds and no ulcerations. Lower extremity- Normal temperature with pink nailbeds and no ulcerations. DP pulses 2+ bilaterally. Pedal hair intact. Normal capillary refill. Edema- No edema. Musculoskeletal: Generalized-No generalized swelling or edema of extremities, no digital clubbing or cyanosis, neurovascularly intact all four extremities. Upper extremity- Symmetrical posture. No visible deformity. Normal sensation along medial and lateral upper extremity proximally and distally. NO tenderness overlying shoulder, lateral/medial epicondyle. Director Pharmacovigilance 5/5 and strength 4/5 bilateral UE. Elbow palpated, no tenderness overlying olecranon. Normal supination, pronation to active/passive ROM and to resisted rotation. Bicep insertion/tricep insertion appear normal without obvious pathology. Normal wrist ROM bilaterally. Normal hand movement, intrinsic muscles of hands normal. No tenderness to palpation of hands/wrists/elbows. No obvious ecchymosis, no sores on sacral region. Lower extremity- Hip: Not tender to palpation, no pain, no swelling, edema or erythema of surrounding tissue, normal strength and tone. Normal appearing hip ROM bilaterally without pain. Knee: Knee ROM normal. No tenderness overlying trochanters, no tenderness about patella, quad tendon, patellar tendon. No tenderness at tibial tuberosity. Ankle: normal ROM not tender to palpation along medial/lateral malleolus. Calves symmetrical, not tender to palpation. Hip flexion 4/5, knee extension 4/5. Knee flxion 4.5. Spine/Ribs- No deformities, masses. No tenderness, no known fractures, normal strength, Normal ROM. Normal stability No tenderness along C/T/L spine. Normal appearing ROM about spine. Neurological: General- Moves all 4 extremities symmetrically. Symmetrical face and body posture. Cranial nerves- individually evaluated II-XII and intact. PERRLA, Normal EOMI, visual/special senses appear intact, Face is symmetrical and normal sensation/movement, normal tongue, normal strength/posture of neck musculature. Reflexes- intact with DTR 2+ patellar, Achilles, bicep, brachial, tricep. Ankle clonus normal with 2 beats. Strength- 5/5 bilateral UE and LE. Soft touch- intact bilateral UE and LE. Temperature sensation- intact bilateral UE and LE. Difficulty following directions/instructions. Neuropsych: Oriented- Person, Not oriented to place/time. He thought he was at [facility]. is not present today. I tried calling # not active. Mood/affect- Pleasant.Speech- Limited, not forthcoming with information. Normal speech, normal rate, normal tone, normal use of language, volume and coherence. Thought content- decreased. Pleasant as listed but decreased. Memory- problematic. Knowledge- Limited Lymphatic: Head/Neck- normal size and non tender to palpation. Axillary- normal size and non tender to palpation. Femoral and Inguinal- normal size and non tender to palpation. - Lab/Tests/Diagnostic Imaging Lab/Tests/Diagnostic Imaging: Laboratory Results - last 24 hr 04/30/18 04/30/18 04:30 04:30 WBC 5.98 RBC 4.56 L Hgb 12.4 L Hct 38.0 L MCV 83.3 MCH 27.2 MCHC 32.6 RDW Coeff of Sea 15.0 H Plt Count 244 Immature Gran % (Auto) 0.2 Neut % (Auto) 38.4 Lymph % (Auto) 46.8 [place] % (Auto) 9.5 Eos % (Auto) 4.8 Baso % (Auto) 0.3 Immature Gran # (Auto) 0.0 Neut # (Auto) 2.3 Lymph # (Auto) 2.8 [place] # (Auto) 0.6 Eos # (Auto) 0.3 Baso # (Auto) 0.0 Sodium 139.1 Potassium 4.09 Chloride 108.7 H Carbon Dioxide 28.7 Anion Gap 5.79 BUN 15.9 Creatinine 1.19 H Estimated GFR (MDRD) 59.00 BUN/Creatinine Ratio 13.36 Glucose 93.1 Calcium 8.84 Total Bilirubin 0.54 AST 34.0 ALT 11.6 Alkaline Phosphatase 27.5 L Total Protein 6.31 Albumin 3.48 L Globulin 2.83 Albumin/Globulin Ratio 1.22 CT Chest ?subtle right lower lobe pneumonia vs atelectasis EKG: NEgative per ER Urine Culture Pending. . - Assessment (1) General weakness Status: Acute Code(s): R53.1 - WEAKNESS SNOMED Code(s): 11390061 (2) UTI (urinary tract infection) Status: Acute Code(s): N39.0 - URINARY TRACT INFECTION, SITE NOT SPECIFIED SNOMED Code(s): 53802340 Qualifiers: Urinary tract infection type: site unspecified Hematuria presence: without hematuria Qualified Code(s): N39.0 - Urinary tract infection, site not specified (3) Change in mental status Status: Acute Code(s): R41.82 - ALTERED MENTAL STATUS, UNSPECIFIED SNOMED Code(s): 021251407 Qualifiers: Altered mental status type: disorientation Qualified Code(s): R41.0 - Disorientation, unspecified (4) Gait difficulty Status: Acute Code(s): R26.9 - UNSPECIFIED ABNORMALITIES OF GAIT AND MOBILITY SNOMED Code(s): 63063494 (5) Impairment of balance Status: Acute Code(s): R26.89 - OTHER ABNORMALITIES OF GAIT AND MOBILITY SNOMED Code(s): 973877613 (6) Community acquired pneumonia Status: Acute Code(s): J18.9 - PNEUMONIA, UNSPECIFIED ORGANISM SNOMED Code(s ): 202730957 - Plan Plan: UTI: +Nitrite, UA supports bladder infection, patient is asymptomatic. I am still waiting fo the culture. We will monitor urine output. NO fever, SIRS criteria negative. He has no e/o sepsis at this time. I will continue rocephin IV for now and check status of C+S in am. not present to discuss. Sometimes UTI worsens cognition. No sudden change per ER team. - Await the results of C+S - COntinue rocephin for now - Fluid hydration. Mild normocytic anemia: Monitor. Pneumonia: Possible pneumonia vs atelectasis based on CT scan results. SIRS criteria negative. No respiratory distress. I will add doxycycline to the regimen and use doxy plus rocephin for total of 5 days. Afebrile iN ER and on floor. We reviewed his CURB 65 score and his port score, which suggest brief in patient stay for possible pneumonia. PORT score 108 Risk Class IV 8.2-9.3%. This degree of mortality risks recommends hospitalization. - Rocephin - Doxycycline 100 PO BID. Alterred mental status: Patient has semi-acute worsening of chronic dementia/ mental status. Concerned encephalopathy secondary to UTI vs pneumonia. He is in hospital now on appropriate abx for uti and for pneumonia. He is not eating well, weight is okay and compared to previous weights he is about the same to what he was 1 year ago. He had an increase in weight over last 1 year. I will check MRI brain. No stroke like symptoms. Patient is confused, is not present and I have no phone number to call. Discussed with nursing. WE will monitor for now as he does not seem any different to team. Small vessel disease noted on previous MRI. NO deficits on exam. 07/22/16 showed frontotemporal small vessel disease. Cerbral atrophy noted. Again, no stroke like symptoms, no acute changes, gradual changes with time. I believe a CT head is reasonable. No falls. - CT brain first then consider MRI brain w/w/o and MRA brain. - Would like to talk with . DVT Prophy: Lovenox. Diet: Regular Activity: UP with assist fall precaution. Disposition: Worsening mental cognition gradually, not acute, unable to care for patient. We will treat UTI/Pneumonia. I wanted to talk to her to see how much the confusion is different. NO stroke like symptoms, no deficits noted. Confusion is present. UTI/Pneumonia being treated, vitals/labs are stable at this time. Expected length of stay 2-3 days depending on culture, evaluation by physical therapy. Monitor I+O. Admit to inpatient status. Limited ability to get H+P complete as I was waiting for . Discussed case with nursing, Dr. Whelan nurse, tried calling but number in chart not functional. Spent 70 minutes w/ patient. Addendum 04/30/18: Noted urine culture from 04/17/18 and adjusted antibiotics to cover during rounding on 04/30/18.
[2018-04-29] MEDS: SEROQUEL PO SCH (20:06)
[2018-04-29] MEDS: MELATONIN PO SCH (20:07)
[2018-04-29] MEDS: [UNRECOGNIZED DRUG - OTHER] PO SCH (20:07)
[2018-04-29] MEDS: PYRIDOXINE HCL PO SCH (20:07)
[2018-04-29] MEDS ORDERED: QUETIAPINE FUMARATE 200 MG PO SCH (21:00)
[2018-04-30] MEDS: SODIUM CHLORIDE 1,000 ML IV SCH ×3 (04:57→18:01)
[2018-04-30] MEDS: PROTONIX PO SCH (05:43)
--- NOTE | 2018-04-30 08:21 | PCM.PROG ---
Subjective: 77 year old male with dementia alone in bedside chair awake pleasant oriented to self only. Phone was beeping and he stated he had to get his car. I discussed this was a phone. He does not know hospital name, city, month, year. is not present today. Dementia is present. Mechanical Project Manager, pulled out IV. There was question about pneumonia and UTI. Culture for urine is pending. CT reviewed again and suspect atelectasis but cannot r/o pneumonia in early stage. He has no distress, vitals are stable, afebrile, SIRS negative, CBC is okay. I will continue 5 days of abx, continue the rocephin IV for now, doxy PO BID 100 mg to be added for now, until the culture returns. I need to speak with as I have seen patient twice and he cannot provide any history. Attempted full history and he cannot provide this information with dementia and possibly some encephalopathy secondary to infection. Reviewed labs with patient and OV nurse. WBC 6.11 down now to 5.98. Hgb stable 12.4 down from 13.8 and plt stable at 244. Chem panel was normal. URine culture remains pending. He has no c/o today, but has no idea where he is. Urine out put is on low side at 0.3 ml/kg/hour output over last 8 hours. I will start some IV fluids at 120 ml/ hour NS. Watch I+O over next 24 hours. REVIEW OF SYMPTOMS: (Positives bolded) Asked patient these questions today and he could not answer, unaware. No C/O. General: weight loss, fever, chills, night sweats, fatigue, appetite loss HEENT: blurry vision, eye pain, eye discharge, dry eyes, decreased vision, sore throat tinnitus, bloody nose, hearing loss, sinus pain/pressure, ear pain/ pressure. Respiratory: shortness of breath, cough, hemoptysis, wheezing, pleurisy, Cardiovascular: chest pain, PND, palpitation, edema, orthopnea, syncope, swelling of extremities Gastro: Nausea, vomiting, diarrhea, hematemesis, abdominal pain, constipation Genito: hematuria, dysuria, glycosuria, hesitancy, frequency, incontinence [place]elo: Arthralgia, myalgia, muscle weakness, joint swelling, NSAID use Skin: rash, pruritis, sores, nail changes, skin thickening, change in wart/mole , itching, rash, new lesions, pruritus, nail changes Neuro: Migraine, numbness, ataxia, tremor, vertigo, weakness, memory loss, Irritability, dizziness Endocrine: excessive thirst, polyuria, cold intolerance, heat intolerance, goiter Psychiatric: depression, anxiety, anti-depressants, alcohol abuse, drug abuse, insomnia, change in sleep pattern and mood changes Heme/lymph: easy bruising, bleeding gums, blood clots, swollen glands, lymphedema, Allergic/immune: allergic rhinitis, hay fever, asthma, hives Objective: Vital Signs - 24 hr 04/29/18 04/29/18 04/29/18 13:03 16:28 17:29 Temperature 97.6 F 98.4 F 98.4 F Pulse Rate 117 H 72 72 Respiratory 20 20 20 Rate Blood Pressure 115/66 115/66 O2 Sat by Pulse 95 99 99 Oximetry 04/29/18 04/30/18 22:00 06:00 Temperature 98.9 F 98.6 F Pulse Rate 74 67 Respiratory 20 18 Rate Blood Pressure 141/82 H 144/86 H O2 Sat by Pulse 96 99 Oximetry Constitutional: Appearance-No acute distress, Consistent with stated age. Orientation- Oriented x 3, alertGait-Normal pace, normal arm movement. Build and Nutrition-[Age appropriate, BMI is stable medicare goal of 23-30] General- Patient is pleasant and cooperative with the interview and exam. Integumentary: General-No rashes, ulcers or lesions. Palpation- Normal skin moisture/turgor. Skin is warm to touch, appropriate. Capillary refill is normal bilateral Upper and lower extremity. Head/Neck: Head- normocephalic and atraumatic. Neck- without visible/palpable lumps or pulsations. Palpation- No bony tenderness about head/neck along frontal, occipital, temporal, parietal, mastoid, jawline, zygoma, orbit or any other location. NO temporal artery tenderness. No TMJ tenderness. Neck Supple. Thyroid-No thyromegaly, no nodules Eye: Bilaterally PERRLA, EOMI. No discharge. Upper and lower eyelids are normal. Sclera/conjunctiva normal without discharge. Cornea is normal and clear. Lens is normal. Eyeball appears normal. No ciliary flushing, no conjunctival injection. ENMT: Nose and sinus- No sinus tenderness along frontal/maxillary region. External appearance normal and midline. Nares- bilateral quiet airflow, no discharge. Nasal mucosa- No bleeding noted and no ulcerations observed. [place], moist. Turbinates non boggy. Lips- normal color, moist without cracks/lesions Oral Cavity/Palate- hard/soft palate intact without lesions, oral mucosa pink and moist. Oropharynx- no pharyngeal erythema, Uvula midline. No post nasal drip. No exudate. Salivary glands- Non tender to palpation CHEST/LUNG: Inspection- symmetric chest wall no pectus deformity. Normal effort , no distress, no use of accessory muscles. Palpation- nontender sternum, ribline. No abnormal pulsations. Auscultation- Breath sounds normal throughout all lung srinivasan. Normal tracheal sounds, Normal bronchial sounds overlying sternum, Bronchovessicular sounds normal between scapulae posteriorly, Normal vessicular breath sounds heard throughout periphery. Lungs are clear today. Adventitious sounds- No wheezes, rales, rhonchi. CARDIOVASCULAR: Carotid artery- normal, no bruits or abnormal pulsations. Jugular vein- no pulsations. Palpation/Percussion- Normal PMI, no palpable thrill Auscultation- Regular rate and rhythm. No murmur noted in sitting, supine positions. Extremities- no digital clubbing, cyanosis, edema, increased warmth. ABDOMEN: Inspection- normal and no visible pulsations. Normal contour. Auscultation- Bowel sounds normal, no abdominal bruits. Palpation/Percussion- soft, non-tender, no rebound tenderness, no rigidity (guarding), no jar tenderness, no masses. Liver-no hepatomegaly, Spleen no splenomegaly, Hernias - none. Rectal not examined. Peripheral Vascular: Upper extremity Left- Normal temperature with pink nailbeds and no ulcerations. Upper extremity Right- Normal temperature with pink nailbeds and no ulcerations. Lower extremity- Normal temperature with pink nailbeds and no ulcerations. DP pulses 2+ bilaterally. Pedal hair intact. Normal capillary refill. Edema- No edema. Musculoskeletal: Generalized-No generalized swelling or edema of extremities, no digital clubbing or cyanosis, neurovascularly intact all four extremities. Upper extremity- Symmetrical posture. No visible deformity. Normal sensation along medial and lateral upper extremity proximally and distally. NO tenderness overlying shoulder, lateral/medial epicondyle. 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 Elbow palpated, no tenderness overlying olecranon. Normal supination, pronation to active/passive ROM and to resisted rotation. Bicep insertion/tricep insertion appear normal without obvious pathology. Normal wrist ROM bilaterally. Normal hand movement, intrinsic muscles of hands normal. No tenderness to palpation of hands/wrists/elbows. Lower extremity- Hip: Not tender to palpation, no pain, no swelling, edema or erythema of surrounding tissue, normal strength and tone. Normal appearing hip ROM bilaterally without pain. Knee: Knee ROM normal. No tenderness overlying trochanters, no tenderness about patella, quad tendon, patellar tendon. No tenderness at tibial tuberosity. Ankle: normal ROM not tender to palpation along medial/lateral malleolus. Spine/Ribs- No deformities, masses or tenderness, no known fractures, normal strength, Normal ROM. Normal stability No tenderness along C/T/L spine. Normal appearing ROM about spine. Neurological: General- Moves all 4 extremities symmetrically. Symmetrical face and body posture. Cranial nerves- individually evaluated II-XII and intact. PERRLA, Normal EOMI, visual/special senses appear intact, Face is symmetrical and normal sensation/movement, normal tongue, normal strength/posture of neck musculature. Reflexes- intact with DTR 2+ patellar, Achilles, bicep, brachial, tricep. Ankle clonus normal with 2 beats. Strength- 5/5 bilateral UE and LE. Soft touch- intact bilateral UE and LE. Temperature sensation- intact bilateral UE and LE. []Cerebellar testing-Rapid alternating movements intact. Heel saha intact. Able to walk normal gait, normal heel toe walking. Balance- Romberg intact. Normal Walking, heel toe walking, tip toe and heel walking normal. Neuropsych: Oriented- Person, Mood/affect- Flat affect. Speech- Limited, short answers. I do not know. Thought content- REduced. Associations- intact, no SI/HI, no hallucinations, delusions, obsessions. Judgment/insight- Appropriate. Memory-Recall intact, remote and recent memory intact. Knowledge- Age appropriate fund of knowledge, concentration and attention span normal. Lymphatic: Head/Neck- normal size and non tender to palpation. Axillary- normal size and non tender to palpation. Femoral and Inguinal- normal size and non tender to palpation. Laboratory Last Values WBC 5.98 K/ul (4.2-10.2) 04/30/18 04:30 RBC 4.56 10^6/ul (4.70-6.10) L 04/30/18 04:30 Hgb 12.4 g/dl (14.0-18.0) L 04/30/18 04:30 Hct 38.0 % (42.0-52.0) L 04/30/18 04:30 MCV 83.3 fl (80.0-94.0) 04/30/18 04:30 MCH 27.2 pg (27.0-31.0) 04/30/18 04:30 MCHC 32.6 (31.8-35.4) 04/30/18 04:30 RDW Coeff of Sea 15.0 % (11.6-14.8) H 04/30/18 04:30 Plt Count 244 10^3/uL (140-440) 04/30/18 04:30 Immature Gran % (Auto) 0.2 % (0.0-5.0) 04/30/18 04:30 Neut % (Auto) 38.4 04/30/18 04:30 Lymph % (Auto) 46.8 (10.0-50.0) 04/30/18 04:30 [place] % (Auto) 9.5 (0-10) 04/30/18 04:30 Eos % (Auto) 4.8 % (0.0-7.0) 04/30/18 04:30 Baso % (Auto) 0.3 % (0.0-3.0) 04/30/18 04:30 Immature Gran # (Auto) 0.0 (0.0-1.0) 04/30/18 04:30 Neut # (Auto) 2.3 K/ul (2.0-6.9) 04/30/18 04:30 Lymph # (Auto) 2.8 K/uL (0.60-3.4) 04/30/18 04:30 [place] # (Auto) 0.6 K/uL (0.4-2.0) 04/30/18 04:30 Eos # (Auto) 0.3 K/ul (0.0-0.7) 04/30/18 04:30 Baso # (Auto) 0.0 K/uL (0-0.2) 04/30/18 04:30 Sodium 139.1 mmol/L (137-145) 04/30/18 04:30 Potassium 4.09 mmol/L (3.5-5.1) 04/30/18 04:30 Chloride 108.7 mmol/L (98-107) H 04/30/18 04:30 Carbon Dioxide 28.7 mmol/L (22-30) 04/30/18 04:30 Anion Gap 5.79 04/30/18 04:30 BUN 15.9 mg/dL (9-20) 04/30/18 04:30 Creatinine 1.19 mg/dL (0.60-1.10) H 04/30/18 04:30 Estimated GFR (MDRD) 59.00 mL/min 04/30/18 04:30 BUN/Creatinine Ratio 13.36 04/30/18 04:30 Glucose 93.1 mg/dL (74-106) 04/30/18 04:30 Calcium 8.84 mg/dL (8.4-10.2) 04/30/18 04:30 Total Bilirubin 0.54 mg/dL (0.2-1.3) 04/30/18 04:30 AST 34.0 U/L (17-59) 04/30/18 04:30 ALT 11.6 U/L (0-50) 04/30/18 04:30 Alkaline Phosphatase 27.5 U/L (56-119) L 04/30/18 04:30 Total Protein 6.31 g/dL (6.3-8.2) 04/30/18 04:30 Albumin 3.48 g/dL (3.5-5.0) L 04/30/18 04:30 Globulin 2.83 04/30/18 04:30 Albumin/Globulin Ratio 1.22 04/30/18 04:30 Urine Color Yellow (YELLOW) 04/29/18 14:10 Urine Clarity Clear (CLEAR) 04/29/18 14:10 Urine pH 6.0 (5-9) 04/29/18 14:10 Ur Specific [place] >=1.030 (1.005-1.030) 04/29/18 14:10 Urine Protein Trace (NEGATIVE) 04/29/18 14:10 Urine Glucose (UA) Negative (NEGATIVE) 04/29/18 14:10 Urine Ketones Negative (NEGATIVE) 04/29/18 14:10 Urine Blood Trace-intact (NEGATIVE) 04/29/18 14:10 Urine Nitrite Positive (NEGATIVE) 04/29/18 14:10 Urine Bilirubin Negative (NEGATIVE) 04/29/18 14:10 Urine Urobilinogen 0.2 (0.2) 04/29/18 14:10 Ur Leukocyte Esterase 2+ (NEGATIVE) 04/29/18 14:10 Urine Microscopic RBC 0-2 (0-2) 04/29/18 14:10 Urine Microscopic WBC Tntc (0-2) 04/29/18 14:10 Ur Squamous Epith Cells Not present (0-5) 04/29/18 14:10 Urine Bacteria 1+ (NOT PRESENT) 04/29/18 14:10 Urine Mucus 3+ (NOT PRESENT) 04/29/18 14:10 URINE CULTURE PENDING Chest Imaging: reviewed at Admit. Plan: UTI: Culture pending, continue rocephin IV for now. Await C+S. I checked back into patient outpatient chart and he had Pseudomonas growing in urine. He has no catheter. C+S at that time suggested Cefepime, cipro can be of benefit. Still awaiting current C+S. I will stop the doxy and rocephin and change him to levaquin 750 IV daily and continue this for now. He is on seroquel. I will check EKG stat and then change abx to levaquin. - Pseudomonas on last urine culture. - Nitrite + again yesterday no e/o treatment. - Change to levaquin. - Consider change to PO levaquin as last C+S susceptible and this will cover pneumonia and UTI. Treat total 5 days Oliguria: Increase fluids via IV. Added this today. Monitor, goal 0.5ml/kg/ hour output. Strict I+O. Mild normocytic anemia: Monitor. Pneumonia: Possible pneumonia vs atelectasis. We will add doxycycline to the regimen and use doxy plus rocephin for now. Continue IV rocephin today. Consider change to PO tomorrow and see how he does. Afebrile so far. PORT score alone suggest brief in patient stay for possible pneumonia. WBC okay, afebrile, SIRS negative. NO Respiratory distress. PORT score 108 Risk Class IV 8.2-9.3% mortality recommends hospitalization. At this time he is comfortable and doing better. Alterred mental status: Patient has acute worsening of chronic dementia/mental status. Concerned encephalopathy secondary to UTI vs pneumonia. He is in hospital now on appropriate abx for uti and for pneuomnia. He is not eating well, weight is okay with BMI of 23. Medicare recommends 23-30. Confused, up and out of bed regularly, not complying with safety mechanisms per nursing, pulling out IV. If he continues to look clinically well, we will switch to PO tomorrow and see how he does and possibly d/c 05/02/18. DVT Prophy: Lovenox. Diet: Regular Activity: UP with assist fall precaution. Disposition: Worsening mental cognition, unable to care for patient, UTI/ Pneumonia being treated, vitals/labs are stable at this time. Hospital Rounding Day 1 today, admitted yesterday 04/29/18. Goal for discharge is if he continues to do well over next24 hours. Still awaiting urine culture. I have increased fluids. 35 minutes spent rounding on patient today. still not present. Checked on patient again 1300 and again 17:05. Doing well, comfortable. Abx changed. still not present. patient w/ dementia unaware of location and current surroundings. Documented 2 voids. See back in am.
[2018-04-30] MEDS ORDERED: SODIUM CHLORIDE 1,000 ML IV ONE (08:23)
[2018-04-30] MEDS ORDERED: DOXYCYCLINE HYCLATE PO SCH (09:00)
[2018-04-30] MEDS ORDERED: NON-FORMULARY MEDICATION (Lactobacillus Acidophilus [Probiotic] 1 EACH) PO SCH (09:00)
[2018-04-30] MEDS ORDERED: LEXAPRO PO SCH (09:00)
[2018-04-30] MEDS ORDERED: NON-FORMULARY MEDICATION (Calcium Carbonate [Calcium] 500 MG) PO SCH (09:00)
[2018-04-30] MEDS: ASPIRIN CHEWABLE PO SCH (09:12)
[2018-04-30] MEDS: CALCIUM 500 + VIT D 200 MG TABLET PO SCH (09:12)
[2018-04-30] MEDS: MEDROXYPROGESTERONE ACETATE 10 MG PO SCH (09:13)
[2018-04-30] MEDS: FLORASTOR PO SCH (09:13)
[2018-04-30] MEDS: SEROQUEL PO SCH ×2 (09:14→20:35)
[2018-04-30] MEDS: PLAVIX PO SCH (09:14)
[2018-04-30] MEDS: LOVENOX SUBCUT SCH (09:15)
[2018-04-30] MEDS ORDERED: LEVAQUIN 750 MG in PREMIX 150 ML D5W 1 BAG IV SCH ×4 (09:30)
[2018-04-30] MEDS: ROCEPHIN 1 GM in SODIUM CHLORIDE 50 ML IV SCH (10:30)
--- NOTE | 2018-04-30 11:50 | RS.PTINEVL ---
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 - Level of function Abilities prior to this admission: pt requires assist with ADL's as well as amb at home Current Level of Function: Partially Dependent Current Equipment Used at Home: rwx Interventions - Objective Patient Orientation: Person Current Interventions: IV's, Telemetry Range of Motion - ROM Right Upper Extremity AROM: WFL's Left Upper Extremity AROM: WFL's Right Lower Extremity AROM: WFL's Left Lower Extremity AROM: WFL's Muscle Strength - Muscle Strength Right Upper Extremity Strength: Mild Weakness (grossly 4/5) Left Upper Extremity Strength: Mild Weakness (grossly 4/5) Right Lower Extremity Strength: Mild Weakness (hip flex 4-/5, knee flex/ext 4/5 , ankle Df/PF 4/5) Left Lower Extremity Strength: Mild Weakness Sensation - Sensation Right Upper Extremity Sensation: Intact/Normal Left Upper Extremity Sensation: Intact/Normal Right Lower Extremity Sensation: Intact/Normal Left Lower Extremity Sensation: Intact/Normal Palpation Palpation Findings: None/Normal Balance - Sitting Balance and Reactions Static Sitting Balance: Good Dynamic Sitting Balance: Fair Sitting Equilibrium Reactions: Delayed Left, Delayed Right Sitting Protective Reactions: Delayed Left, Delayed Right - Standing Balance and Reactions Static Standing Balance: Poor Dynamic Standing Balance: Poor Standing Equilibrium Reactions: Delayed Left, Delayed Right Standing Protective Reactions: Delayed Left, Delayed Right - Comments Balance Assessment Comments: pt with multiple episodes of LOB with amb requiring min assist to maintain balance. Functional Mobility - Bed Mobility Rolling R/L: Supervision Supine to Sit: Supervision - Transfers Sit to Stand: Min Assist Stand to Sit: Min Assist - Safety Awareness Safety Awareness: Poor KAYLEE INDEX SCORE: n/a Ambulation - Ambulation Assistive Device Used: Rolling Walker Orthotic/Prosthetic Device: No Distance: 80ft Assistance needed with Ambulation: Min Assist Gait Deviations: Shuffling gait, Forward posture, Short stride, Deviates from path Ambulation Comments: pt requires repeated verbal and tactile cues to to keep rwx close and to correct posture. Treatment time - Time with patient Length of Evaluation: 21 Total treatment time: 21 Patient Education - Education Patient Education: Activity Modification, Education of Plan of Care Teaching Recipient: Patient Teaching Methods: Discussion Assessment - Assessment Problem List:: Decreased level of function, Requires training/education, Decreased safety/Risk of falls, Weakness, Cognitive status limits abilities Rehab Potential: Fair Further Therapy Indicated?: Yes Candidate for Swing Bed for Therapy Services?: Do not feel pt would be a candidate for swing bed due to cognitive deficits Evaluation Complexity: HISTORY: Medium, EXAM OF BODY SYSTEMS: Medium, CLINICAL PRESENTATION: Medium, CLINICAL DECISION MAKING: Medium Short Term Goals GOAL #1: Transfer sup to/from sit independently, sit to/from stand CGA Goal to be met by: 05/03/18 GOAL #2: pt amb with rwx 120ft with CGA with improved posture Goal to be met by: 05/03/18 GOAL #3: pt with improved BLE strength 4 to 4+/5 Goal to be met by: 05/03/18 GOAL #4: pt independent with positioning in bed Goal to be met by: 05/03/18 Sql Data Analyst Goals GOAL #1: pt transfer sup to/from sit to/from stand with SBA Goal to be met by: 05/05/18 GOAL #2: pt amb with rwx functional household distance with SBA to CGA with no LOB Goal to be met by: 05/05/18 GOAL #3: pt improve dyn stand balance fair+ Goal to be met by: 05/05/18 Plan Plan of Care: Therapeutic EX, Therapeutic Activity Other:: gait training Frequency of Treatment: 1-2 X day, as tolerated Duration of Treatment: 5 days Anticipated Discharge Destination: Home Treatment Diagnosis (ICD 10 Codes): R26.2 difficulty walking. R26.81 balance impaired. M62.81 weakness Has the Physician been added for Co-signature?: Yes
--- NOTE | 2018-04-30 19:40 | CT ---
EXAM: CT head without contrast. HISTORY: Confusion. Worsening cognition. PROCEDURE: Contiguous axial CT images of the head without contrast with coronal and sagittal reforma ts. FINDINGS: Comparison made with MRI of 07/22/2016. There is diffuse cerebral atrophy. The ventricles are stable in size. The basal cisterns are normal in size and configuration. No evidence of mass o r midline shift. No intracranial hemorrhage or evidence of large vessel infarct. No extra-axial flu id collection. There are chronic small vessel ischemic changes in the white matter. There is a mucou s retention cyst in the right side of the sphenoid sinus. The mastoid air cells are well-aerated and normal in appearance. Impression: No intracranial hemorrhage or evidence of large vessel infarct. Chronic small vessel ischemic changes. Diffuse cerebral atrophy. Sphenoid sinusitis.
[2018-04-30] MEDS: [UNRECOGNIZED DRUG - OTHER] PO SCH (20:35)
[2018-04-30] MEDS: PYRIDOXINE HCL PO SCH (20:35)
[2018-04-30] MEDS: MELATONIN PO SCH (20:35)
[2018-05-01] MEDS: SODIUM CHLORIDE 1,000 ML IV SCH ×3 (02:49→15:38)
[2018-05-01] MEDS: PROTONIX PO SCH (05:52)
--- NOTE | 2018-05-01 07:39 | PCM.PROG ---
Subjective: 77 yo WM room 122 Hospital Day 2 UTI/Pneumonia/Weakness/Debility/worsening alzheimers. CT head showed worsening atrophy, physical therapy saw patient yesterday and I thank them for the assistance. They noted weakness, difficulty walking, balance impaired and recommended PT services. OT to see patient today and I await their recommendations. Patient is on IV levaquin to cover both pneumonia and possible UTI. Urine culture returned contaminant so I will use the culture from 04/17/18 to guide therapy. Finish 5 days of abx. Reculture urine 1 week post termination of abx. is not in hospital for me to discuss the care with patient. I have reviewed Dr. Whelan notes from last OV, I have reviewed previous MRI. Patient dementia is worsening, he needs help with all ADL. This am he was again confused, unable to provide history, pleasant and aware of self but nothing else. NO c/o today, he is doing okay. Afebrile, vitals remain stable. At this time, I will plan to switch from IV to PO abx to complete another 3 days as outpatient. I will plan on checking on status of NH and d/c to [facility] tomorrow morning. Talked with ON nurse, reviewed telemetry. Last shift uout was better. 0.72 ml/kg/hour over last 8 hours. Prior 8 hours documented voids and BM but no I+O values. This is better. REVIEW OF SYMPTOMS: (Positives bolded) PATIENT HAS NO COMPLAINTS, PLEASANT AND HAPPY. General: weight loss, fever, chills, night sweats, fatigue, appetite loss Dementia HEENT: blurry vision, eye pain, eye discharge, dry eyes, decreased vision, sore throat tinnitus, bloody nose, hearing loss, sinus pain/pressure, ear pain/ pressure. Respiratory: shortness of breath, cough, hemoptysis, wheezing, pleurisy, Cardiovascular: chest pain, PND, palpitation, edema, orthopnea, syncope, swelling of extremities Gastro: Nausea, vomiting, diarrhea, hematemesis, abdominal pain, constipation Genito: hematuria, dysuria, glycosuria, hesitancy, frequency, incontinence [place]: Arthralgia, myalgia, muscle weakness, joint swelling, NSAID use Skin: rash, pruritis, sores, nail changes, skin thickening, change in wart/mole , itching, rash, new lesions, pruritus, nail changes Neuro: Migraine, numbness, ataxia, tremor, vertigo, weakness, memory loss, Irritability, dizziness Endocrine: excessive thirst, polyuria, cold intolerance, heat intolerance, goiter Psychiatric: depression, anxiety, anti-depressants, alcohol abuse, drug abuse, insomnia, change in sleep pattern and mood changes Heme/lymph: easy bruising, bleeding gums, blood clots, swollen glands, lymphedema, Allergic/immune: allergic rhinitis, hay fever, asthma, hives Objective: Vital Signs - 24 hr 04/30/18 04/30/18 04/30/18 13:46 18:03 20:00 Temperature 97.3 F L 98.4 F Pulse Rate 114 H 72 82 Respiratory 16 20 18 Rate Blood Pressure 133/70 115/66 O2 Sat by Pulse 97 99 Oximetry 04/30/18 05/01/18 05/01/18 22:00 01:38 05:46 Temperature 99.2 F 98.1 F 98.5 F Pulse Rate 77 70 76 Respiratory 18 18 16 Rate Blood Pressure 156/82 H 158/98 H O2 Sat by Pulse 96 96 Oximetry Constitutional: Appearance-No acute distress, Consistent with stated age. Asleep on entry but Orientation- Oriented x 1 Self only (Error noted on exam yesterday) Gait- In hospital bed, weakness with walking. Eval by physical therapy yesterday. Build and Nutrition-Down 2 more pounds, 50% General- Patient is pleasant and cooperative with the interview and exam. Confused. Integumentary: General-No rashes, ulcers or lesions. Palpation- Normal skin moisture/turgor. Skin is warm to touch, appropriate. Head/Neck: Head- normocephalic and atraumatic. Neck- without visible/palpable lumps or pulsations. Palpation- No bony tenderness about head/neck along frontal, occipital, temporal, parietal, mastoid, jawline, zygoma, orbit or any other location. NO temporal artery tenderness. No TMJ tenderness. Neck Supple. Thyroid-No thyromegaly, no nodules Eye: Bilaterally PERRLA, EOMI. No discharge. ENMT: Nose and sinus- No sinus tenderness along frontal/maxillary region. External appearance normal and midline. Nares- bilateral quiet airflow, no discharge. Nasal mucosa- No bleeding noted and no ulcerations observed. [place], moist. Turbinates non boggy. Lips- normal color, moist without cracks/lesions Oral Cavity/Palate- hard/soft palate intact without lesions, oral mucosa pink and moist. Oropharynx- no pharyngeal erythema, Uvula midline. No post nasal drip. No exudate. Salivary glands- Non tender to palpation CHEST/LUNG: Auscultation- Breath sounds normal throughout all lung srinivasan. Normal tracheal sounds, Normal bronchial sounds overlying sternum, Bronchovessicular sounds normal between scapulae posteriorly, Normal vessicular breath sounds heard throughout periphery. Lungs are clear today. Adventitious sounds- No wheezes, rales, rhonchi. CARDIOVASCULAR: Carotid artery- normal, no bruits or abnormal pulsations. Jugular vein- no pulsations. Palpation/Percussion- Normal PMI, no palpable thrill Auscultation- Regular rate and rhythm. No murmur noted in sitting, supine positions. Extremities- no digital clubbing, cyanosis, edema, increased warmth. ABDOMEN: Inspection- normal and no visible pulsations. Normal contour. Auscultation- Bowel sounds normal, no abdominal bruits. Palpation/Percussion- soft, non-tender, no rebound tenderness, no rigidity (guarding), no jar tenderness, no masses. Peripheral Vascular: Upper extremity Left- Normal temperature with pink nailbeds and no ulcerations. Upper extremity Right- Normal temperature with pink nailbeds and no ulcerations. Lower extremity- Normal temperature with pink nailbeds and no ulcerations. DP pulses 2+ bilaterally. Pedal hair intact. Normal capillary refill. Edema- No edema. Musculoskeletal: Generalized-No generalized swelling or edema of extremities, no digital clubbing or cyanosis, neurovascularly intact all four extremities. Neurological: General- Moves all 4 extremities symmetrically. Symmetrical face and body posture. Cranial nerves- individually evaluated II-XII and intact. PERRLA, Normal EOMI, visual/special senses appear intact, Face is symmetrical and normal sensation/movement, normal tongue, normal strength/posture of neck musculature. Reflexes- intact with DTR 2+ patellar, Achilles, bicep, brachial, tricep. Ankle clonus normal with 2 beats. Strength- 4/5 bilateral UE and LE. Soft touch- intact bilateral UE and LE. Temperature sensation- intact bilateral UE and LE. Neuropsych: Oriented- Person, Mood/affect- Flat affect. Speech- Limited, short answers. I do not know. Thought content- REduced. Associations- intact, no SI/HI, no hallucinations, delusions, obsessions. Judgment/insight- Appropriate. Memory-Recall intact, remote and recent memory intact. Knowledge- Age appropriate fund of knowledge, concentration and attention span normal. Lymphatic: Head/Neck- normal size and non tender to palpation. Axillary- normal size and non tender to palpation. Femoral and Inguinal- normal size and non tender to palpation. Laboratory Last Values WBC 5.27 K/ul (4.2-10.2) 05/01/18 04:55 RBC 4.12 10^6/ul (4.70-6.10) L 05/01/18 04:55 Hgb 11.3 g/dl (14.0-18.0) L 05/01/18 04:55 Hct 34.3 % (42.0-52.0) L 05/01/18 04:55 MCV 83.3 fl (80.0-94.0) 05/01/18 04:55 MCH 27.4 pg (27.0-31.0) 05/01/18 04:55 MCHC 32.9 (31.8-35.4) 05/01/18 04:55 RDW Coeff of Sea 15.1 % (11.6-14.8) H 05/01/18 04:55 Plt Count 216 10^3/uL (140-440) 05/01/18 04:55 Immature Gran % (Auto) 0.2 % (0.0-5.0) 05/01/18 04:55 Neut % (Auto) 37.3 05/01/18 04:55 Lymph % (Auto) 45.0 (10.0-50.0) 05/01/18 04:55 [place] % (Auto) 11.2 (0-10) H 05/01/18 04:55 Eos % (Auto) 5.7 % (0.0-7.0) 05/01/18 04:55 Baso % (Auto) 0.6 % (0.0-3.0) 05/01/18 04:55 Immature Gran # (Auto) 0.0 (0.0-1.0) 05/01/18 04:55 Neut # (Auto) 2.0 K/ul (2.0-6.9) 05/01/18 04:55 Lymph # (Auto) 2.4 K/uL (0.60-3.4) 05/01/18 04:55 [place] # (Auto) 0.6 K/uL (0.4-2.0) 05/01/18 04:55 Eos # (Auto) 0.3 K/ul (0.0-0.7) 05/01/18 04:55 Baso # (Auto) 0.0 K/uL (0-0.2) 05/01/18 04:55 Sodium 140.0 mmol/L (137-145) 05/01/18 04:55 Potassium 3.73 mmol/L (3.5-5.1) 05/01/18 04:55 Chloride 112.2 mmol/L (98-107) H 05/01/18 04:55 Carbon Dioxide 24.6 mmol/L (22-30) 05/01/18 04:55 Anion Gap 6.93 05/01/18 04:55 BUN 10.2 mg/dL (9-20) 05/01/18 04:55 Creatinine 1.11 mg/dL (0.60-1.10) H 05/01/18 04:55 Estimated GFR (MDRD) 64.00 mL/min 05/01/18 04:55 BUN/Creatinine Ratio 9.18 05/01/18 04:55 Glucose 117.5 mg/dL (74-106) H 05/01/18 04:55 Calcium 8.50 mg/dL (8.4-10.2) 05/01/18 04:55 Total Bilirubin 0.22 mg/dL (0.2-1.3) 05/01/18 04:55 AST 22.3 U/L (17-59) 05/01/18 04:55 ALT 10.4 U/L (0-50) 05/01/18 04:55 Alkaline Phosphatase 32.9 U/L (56-119) L 05/01/18 04:55 Total Protein 5.64 g/dL (6.3-8.2) L 05/01/18 04:55 Albumin 3.20 g/dL (3.5-5.0) L 05/01/18 04:55 Globulin 2.44 05/01/18 04:55 Albumin/Globulin Ratio 1.31 05/01/18 04:55 Urine Color Yellow (YELLOW) 04/29/18 14:10 Urine Clarity Clear (CLEAR) 04/29/18 14:10 Urine pH 6.0 (5-9) 04/29/18 14:10 Ur Specific [place] >=1.030 (1.005-1.030) 04/29/18 14:10 Urine Protein Trace (NEGATIVE) 04/29/18 14:10 Urine Glucose (UA) Negative (NEGATIVE) 04/29/18 14:10 Urine Ketones Negative (NEGATIVE) 04/29/18 14:10 Urine Blood Trace-intact (NEGATIVE) 04/29/18 14:10 Urine Nitrite Positive (NEGATIVE) 04/29/18 14:10 Urine Bilirubin Negative (NEGATIVE) 04/29/18 14:10 Urine Urobilinogen 0.2 (0.2) 04/29/18 14:10 Ur Leukocyte Esterase 2+ (NEGATIVE) 04/29/18 14:10 Urine Microscopic RBC 0-2 (0-2) 04/29/18 14:10 Urine Microscopic WBC Tntc (0-2) 04/29/18 14:10 Ur Squamous Epith Cells Not present (0-5) 04/29/18 14:10 Urine Bacteria 1+ (NOT PRESENT) 04/29/18 14:10 Urine Mucus 3+ (NOT PRESENT) 04/29/18 14:10 H/H Trends 04/29/18 04/30/18 05/01/18 Range/Units 13:35 04:30 04:55 Hgb 13.8 L 12.4 L 11.3 L (14.0-18.0) g/dl Hct 42.6 38.0 L 34.3 L (42.0-52.0) % Head CT: Small vessel disease, diffuse cerebral atrophy. Urine culture likely contaminate. At present minimal benefit to recollect as on abx 48 hours. (1) General weakness Status: Chronic Code(s): R53.1 - WEAKNESS SNOMED Code(s): 81050116 (2) UTI (urinary tract infection) Status: Acute Code(s): N39.0 - URINARY TRACT INFECTION, SITE NOT SPECIFIED SNOMED Code(s): 07651891 (3) Change in mental status Status: Acute Code(s): R41.82 - ALTERED MENTAL STATUS, UNSPECIFIED SNOMED Code(s): 767312606 (4) Gait difficulty Status: Acute Code(s): R26.9 - UNSPECIFIED ABNORMALITIES OF GAIT AND MOBILITY SNOMED Code(s): 14434031 (5) Impairment of balance Status: Acute Code(s): R26.89 - OTHER ABNORMALITIES OF GAIT AND MOBILITY SNOMED Code(s): 099246234 (6) Community acquired pneumonia Status: Acute Code(s): J18.9 - PNEUMONIA, UNSPECIFIED ORGANISM SNOMED Code(s ): 740831769 Plan: Assessment: Pleasant 77 yr old male w/ worsening cognition and cerebral atrophy likely Alzheimers Dementia. Hospital rounding day 2, admitted on 04/29/18 w/ suspected UTI and Possible pneumonia. Vitals stable, remains afebrile, SIRS negative. Urine culture was contaminated and not helpful. Used culture from 04/17/18 Pseudomonas sensitive to levaquin to guide therapy. This will cover for both Pneumonia and UTI. We will complete a total of 5 days of abx. He has an anemia that is chronic and normocytic, which should be monitored. Mental status is worsening, needs help with all ADL, phys therapy saw him yesterday and OT will likely see him today. Pharmacy noted issues with seroquel, agree it will increase risks for falls but will also help with mood and psych related complications. QTC monitored, Tele monitored. Patient is stable. requested consideration of NH. I feel that this is a good idea for the patient and we will check with [facility] about accepting him tomorrow. Switch to PO abx today, see how he does and d/c to [place] with another 3 days of levaquin. Last 8 hour shift showed better urine output of 0.72ml/kg. He will be medically stable for d/c tomorrow. Case management will help with preparation for transfer to [place] tomorrow. UTI: Stable - Abx day 2 on Levaquin 750 daily. - Continue 3 more days after d/c. - Change to PO levaquin today. Oliguria: Improving. - Continue maintenance fluid. Mild normocytic anemia: Monitor. Pneumonia: Improving and Stable. - Finish 5 days of levaquin total - 3 days more after d/c. Alterred mental status: Chronic process. CT reviewed. Suspect worsening alzheimers dementia. - Plan d/c 05/02/18 [facility]. DVT Prophy: - Lovenox to continue Diet: - Regular Activity: - UP with assist fall precaution. - Per Phys therapy and Occ Therapy Disposition: Stable overall, plan to change IV to PO today. Occ therapy. Chronic worsening alzheimers. I would like to meet with today, nursing has been alerted. So far I have been unable to communicate with her, phone number in chart is not functional. At minimum they will get a functional phone number today. She is no longer able to care for patient, needs help all ADL. UTI/Pneumonia being treated, vitals/labs are stable at this time. Hospital Rounding Day 2 today, admitted 04/29/18. Goal for discharge will be 05/02/18 as he has continued stability over last 24 hours. 25 minutes spent rounding on patient today. still not present.
[2018-05-01] MEDS: MEDROXYPROGESTERONE ACETATE 10 MG PO SCH (08:44)
[2018-05-01] MEDS: PLAVIX PO SCH (08:57)
[2018-05-01] MEDS: ASPIRIN CHEWABLE PO SCH (08:57)
[2018-05-01] MEDS: LEVAQUIN PO SCH (08:57)
[2018-05-01] MEDS: FLORASTOR PO SCH (08:57)
[2018-05-01] MEDS: SEROQUEL PO SCH ×2 (08:58→20:31)
[2018-05-01] MEDS: LOVENOX SUBCUT SCH (08:58)
[2018-05-01] MEDS: CALCIUM 500 + VIT D 200 MG TABLET PO SCH (09:05)
[2018-05-01] MEDS: PYRIDOXINE HCL PO SCH (20:30)
[2018-05-01] MEDS: MELATONIN PO SCH (20:30)
[2018-05-01] MEDS: [UNRECOGNIZED DRUG - OTHER] PO SCH (20:30)
[2018-05-02] MEDS: PROTONIX PO SCH (05:46)
[2018-05-02] MEDS: LEVAQUIN PO SCH (05:46)
--- NOTE | 2018-05-02 07:33 | PCM.DC ---
Urinary Tract infection (Acute): Suspected agent Pseudomonas Community Acquired Pneumonia (Acute): General weakness (Chronic) Change in mental status (Acute) Gait difficulty (Acute) Impairment of balance (Acute) (1) UTI (urinary tract infection) Status: Acute Code(s): N39.0 - URINARY TRACT INFECTION, SITE NOT SPECIFIED SNOMED Code(s): 11446862 Qualifiers: Urinary tract infection type: site unspecified Hematuria presence: without hematuria Qualified Code(s): N39.0 - Urinary tract infection, site not specified (2) General weakness Status: Chronic Code(s): R53.1 - WEAKNESS SNOMED Code(s): 77050784 (3) Change in mental status Status: Acute Code(s): R41.82 - ALTERED MENTAL STATUS, UNSPECIFIED SNOMED Code(s): 041532603 Qualifiers: Altered mental status type: disorientation Qualified Code(s): R41.0 - Disorientation, unspecified (4) Gait difficulty Status: Acute Code(s): R26.9 - UNSPECIFIED ABNORMALITIES OF GAIT AND MOBILITY SNOMED Code(s): 19664290 (5) Impairment of balance Status: Acute Code(s): R26.89 - OTHER ABNORMALITIES OF GAIT AND MOBILITY SNOMED Code(s): 551755051 (6) Community acquired pneumonia Status: Acute Code(s): J18.9 - PNEUMONIA, UNSPECIFIED ORGANISM SNOMED Code(s ): 082994593 Reason for Hospitalization: Worsening weakness, worsening cognition, confusion, falls presented and found to have UTI and Suspected Pneumonia. Needs help with all ADL, confused. Prognosis at Discharge: Stable. Transfer to [facility]. Condition at Discharge: Stable, improving UTI and Pneumonia. Cognition did not improve. Medications at Discharge: Ambulatory Orders Medication Instructions Recorded Cholecalciferol (Vitamin D3) 1 cap PO DAILY 06/01/13 [Vitamin D3] Levomefolate/B6/B12/Algal Oil 1 tab PO DAILY 06/01/13 [Metanx Capsule] Vitamin B Complex Vit C No.4 150 mg PO DAILY 01/13/17 [Super B Complex] Acetaminophen 325 mg PO PRN #60 tab-cap 05/02/18 Aspirin [Aspirin Chewable] 81 mg PO DAILYWM #90 tab.chew 05/02/18 Cimetidine [Tagamet Hb] 300 mg PO BID 90 Days #180 tablet 05/02/18 Clopidogrel Bisulfate [Plavix] 75 mg PO DAILY #90 tab-cap 05/02/18 Escitalopram Oxalate 10 mg PO DAILY #90 tab-cap 05/02/18 Lactobacillus Acidophilus 1 each PO DAILY #30 tab-cap 05/02/18 [Probiotic] Levofloxacin [Levaquin] 750 mg PO QDAC 3 Days #3 tablet 05/02/18 Medroxyprogesterone Acetate 10 mg PO DAILY #90 tablet 05/02/18 Melatonin/Pyridoxine HCl (B6) 1 each PO BEDTIME #90 tab-cap 05/02/18 [Melatonin 10 mg Tablet] Pantoprazole Sodium [Protonix] 40 mg PO QDAC #90 tablet. 05/02/18 Quetiapine Fumarate 200 mg PO BID 90 Days #180 tab-cap 05/02/18 Lab/Diagnostics: Laboratory Last Values WBC 5.27 K/ul (4.2-10.2) 05/01/18 04:55 RBC 4.12 10^6/ul (4.70-6.10) L 05/01/18 04:55 Hgb 11.3 g/dl (14.0-18.0) L 05/01/18 04:55 Hct 34.3 % (42.0-52.0) L 05/01/18 04:55 MCV 83.3 fl (80.0-94.0) 05/01/18 04:55 MCH 27.4 pg (27.0-31.0) 05/01/18 04:55 MCHC 32.9 (31.8-35.4) 05/01/18 04:55 RDW Coeff of Sea 15.1 % (11.6-14.8) H 05/01/18 04:55 Plt Count 216 10^3/uL (140-440) 05/01/18 04:55 Immature Gran % (Auto) 0.2 % (0.0-5.0) 05/01/18 04:55 Neut % (Auto) 37.3 05/01/18 04:55 Lymph % (Auto) 45.0 (10.0-50.0) 05/01/18 04:55 Parker % (Auto) 11.2 (0-10) H 05/01/18 04:55 Eos % (Auto) 5.7 % (0.0-7.0) 05/01/18 04:55 Baso % (Auto) 0.6 % (0.0-3.0) 05/01/18 04:55 Immature Gran # (Auto) 0.0 (0.0-1.0) 05/01/18 04:55 Neut # (Auto) 2.0 K/ul (2.0-6.9) 05/01/18 04:55 Lymph # (Auto) 2.4 K/uL (0.60-3.4) 05/01/18 04:55 Parker # (Auto) 0.6 K/uL (0.4-2.0) 05/01/18 04:55 Eos # (Auto) 0.3 K/ul (0.0-0.7) 05/01/18 04:55 Baso # (Auto) 0.0 K/uL (0-0.2) 05/01/18 04:55 Sodium 140.0 mmol/L (137-145) 05/01/18 04:55 Potassium 3.73 mmol/L (3.5-5.1) 05/01/18 04:55 Chloride 112.2 mmol/L (98-107) H 05/01/18 04:55 Carbon Dioxide 24.6 mmol/L (22-30) 05/01/18 04:55 Anion Gap 6.93 05/01/18 04:55 BUN 10.2 mg/dL (9-20) 05/01/18 04:55 Creatinine 1.11 mg/dL (0.60-1.10) H 05/01/18 04:55 Estimated GFR (MDRD) 64.00 mL/min 05/01/18 04:55 BUN/Creatinine Ratio 9.18 05/01/18 04:55 Glucose 117.5 mg/dL (74-106) H 05/01/18 04:55 Calcium 8.50 mg/dL (8.4-10.2) 05/01/18 04:55 Total Bilirubin 0.22 mg/dL (0.2-1.3) 05/01/18 04:55 AST 22.3 U/L (17-59) 05/01/18 04:55 ALT 10.4 U/L (0-50) 05/01/18 04:55 Alkaline Phosphatase 32.9 U/L (56-119) L 05/01/18 04:55 Total Protein 5.64 g/dL (6.3-8.2) L 05/01/18 04:55 Albumin 3.20 g/dL (3.5-5.0) L 05/01/18 04:55 Globulin 2.44 05/01/18 04:55 Albumin/Globulin Ratio 1.31 05/01/18 04:55 Urine Color Yellow (YELLOW) 04/29/18 14:10 Urine Clarity Clear (CLEAR) 04/29/18 14:10 Urine pH 6.0 (5-9) 04/29/18 14:10 Ur Specific [place] >=1.030 (1.005-1.030) 04/29/18 14:10 Urine Protein Trace (NEGATIVE) 04/29/18 14:10 Urine Glucose (UA) Negative (NEGATIVE) 04/29/18 14:10 Urine Ketones Negative (NEGATIVE) 04/29/18 14:10 Urine Blood Trace-intact (NEGATIVE) 04/29/18 14:10 Urine Nitrite Positive (NEGATIVE) 04/29/18 14:10 Urine Bilirubin Negative (NEGATIVE) 04/29/18 14:10 Urine Urobilinogen 0.2 (0.2) 04/29/18 14:10 Ur Leukocyte Esterase 2+ (NEGATIVE) 04/29/18 14:10 Urine Microscopic RBC 0-2 (0-2) 04/29/18 14:10 Urine Microscopic WBC Tntc (0-2) 04/29/18 14:10 Ur Squamous Epith Cells Not present (0-5) 04/29/18 14:10 Urine Bacteria 1+ (NOT PRESENT) 04/29/18 14:10 Urine Mucus 3+ (NOT PRESENT) 04/29/18 14:10 H/H Trends 04/29/18 04/30/18 05/01/18 Range/Units 13:35 04:30 04:55 Hgb 13.8 L 12.4 L 11.3 L (14.0-18.0) g/dl Hct 42.6 38.0 L 34.3 L (42.0-52.0) % 04/30/18 CT Head: Diffuse Cerebral Atrophy. No intracranial hemorrhage or e/o vessel infarct. Chronic small vessel changes. Diffuse cerebral atrophy. 04/29/18 CT Chest : Questionable subtle pneumonia in Right base versus atelectasis. Right hemidiaphgram chronically. NO pleural fluid. Atherosclerosis dorsal aorta mild aneursym 3.2. Stable. Urine culture returned as probable contaminant Urine culture from 04/17/18: Pseudomonas sensitive to levaquin. Follow-ups: D/C and transfer to [facility]. Medications completed and printed. Disposition: TSF OTHER Hospital Course: Mr. Horne is a 77 yr old white male with worsening dementia who presented to our ER on 04/29/18 with worsening weakness, falls, balance issues, confusion and encephalopathic process and was found to have a urinary tract infection and was found to have suspected CAP. He had no respiratory distress, SIRS criteria were negative and CT showed mild/subtle changes in RLL w/ chronic right hemidiaphragm. Urine showed +NIt, culture collected, labs collected and patient was admitted to inpatient status on 04/29/18. Mild chronic anemia noted , unchanged and this did drop a little with fluids as did the platelet count and white count. At discharge he was at 11.3 and asymptomatic, normocytic anemia. I checked previous labs and he has ranged from 9.8 to 15.6. He is not needing a transfusion at this time, he is asymptomatic. I discussed to repeat CBC/CMP in 1 week with urine culture to monitor for changes, additionally if worsening check hemoccult. The patient was started on rocephin in ER, I added doxycycline (never given). I checked back into his outpatient record and found his last urine culture to grow Pseudomonas and his abx regimen was changed to Levaquin 750 IV. He was on numerous agents that could prolong QT and we checked EKG and found this to be fine. Telemetry was ordered and we started him on levaquin. CMP electrolytes remained okay except for chloride which remained elevated up to 112.2. Renal function improved throughout the stay and he has not had this Cr/GFR since 07/2016 with values of 1.11 and GFR of 64. Glucose was up and down, but he was not corrected as he remained <140 and risks of hypoglycemia >> than hyperglycemia at this point. Remainder of CMP and CBC were normal. The patient had an uneventful admission. Physical therapy and Occupational therapy were consulted, Head imaging done showing worsening atrophy. He remained very confused, eating ~50% of meals, good urine output. At times he would strip naked and remove his clothing, he removed own IV at least 2x by scratching. He is pleasant, he is not combative, he is just confused and likely experiencing advanced stages of Alzheimers. Family and I had a lengthy discussion yesterday and they felt that NH would be best for him as he is needing help with everything and they cannot help him with this any longer. The patient has some benefit to skilled assistance per last Phys therapy note and we will see if any of this can be done through [place]. I agreed with family that he would be best suited for [place] and we will plan to d/c him today. Very pleasant man, sadly worsening cognition. I discussed with family to consider hospice care, they did not want that at this time. I discussed anemia , I discussed his urinary tract. For now he is protecting airway, not choking, but this may be a reality. He is forgetting family, forgetting people, locations. He is only aware of self. Stable to d/c to NH today. Meds printed. I will f/u with him this week at [place]. 3 more days of oral abx , else resume normal home meds. Day of D/C Physical examination. Constitutional: Appearance-No acute distress, Consistent with stated age. Asleep on entry but easily awoken Orientation- Oriented x 1 Self only Build and Nutrition- Still BMI of 23. He has lost ~18 lb over last 1 year. General- Patient is pleasant and cooperative with the interview and exam. Confused. Integumentary: General-No rashes, ulcers or lesions. Palpation- Normal skin moisture/turgor. Skin is warm to touch, appropriate. Head/Neck: Head- normocephalic and atraumatic. Neck- without visible/palpable lumps or pulsations. Palpation- No bony tenderness about head/neck along frontal, occipital, temporal, parietal, mastoid, jawline, zygoma, orbit or any other location. NO temporal artery tenderness. No TMJ tenderness. Neck Supple. Thyroid-No thyromegaly, no nodules Eye: Bilaterally PERRLA, EOMI. No discharge. ENMT: Nose and sinus- No sinus tenderness along frontal/maxillary region. External appearance normal and midline. Nares- bilateral quiet airflow, no discharge. Nasal mucosa- No bleeding noted and no ulcerations observed. [employer], moist. Turbinates non boggy. Lips- normal color, moist without cracks/lesions Oral Cavity/Palate- hard/soft palate intact without lesions, oral mucosa pink and moist. Oropharynx- no pharyngeal erythema, Uvula midline. No post nasal drip. No exudate. Salivary glands- Non tender to palpation CHEST/LUNG: Auscultation- Breath sounds normal throughout all lung srinivasan. Normal tracheal sounds, Normal bronchial sounds overlying sternum, Bronchovessicular sounds normal between scapulae posteriorly, Normal vessicular breath sounds heard throughout periphery. Lungs are clear today. Adventitious sounds- No wheezes, rales, rhonchi. CARDIOVASCULAR: Carotid artery- normal, no bruits or abnormal pulsations. Jugular vein- no pulsations. Palpation/Percussion- Normal PMI, no palpable thrill Auscultation- Regular rate and rhythm. No murmur noted in sitting, supine positions. Extremities- no digital clubbing, cyanosis, edema, increased warmth. ABDOMEN: Inspection- normal and no visible pulsations. Normal contour. Auscultation- Bowel sounds normal, no abdominal bruits. Palpation/Percussion- soft, non-tender, no rebound tenderness, no rigidity (guarding), no jar tenderness, no masses. Peripheral Vascular: Upper extremity Left- Normal temperature with pink nailbeds and no ulcerations. Upper extremity Right- Normal temperature with pink nailbeds and no ulcerations. Lower extremity- Normal temperature with pink nailbeds and no ulcerations. DP pulses 2+ bilaterally. Pedal hair intact. Normal capillary refill. Edema- No edema. Musculoskeletal: Generalized-No generalized swelling or edema of extremities, no digital clubbing or cyanosis, neurovascularly intact all four extremities. Neurological: General- Moves all 4 extremities symmetrically. Symmetrical face and body posture. Cranial nerves- individually evaluated II-XII and intact. PERRLA, Normal EOMI, visual/special senses appear intact, Face is symmetrical and normal sensation/movement, normal tongue, normal strength/posture of neck musculature. Reflexes- intact with DTR 2+ patellar, Achilles, bicep, brachial, tricep. Ankle clonus normal with 2 beats. Strength- 4/5 bilateral UE and LE. Soft touch- intact bilateral UE and LE. Temperature sensation- intact bilateral UE and LE. Neuropsych: Oriented- Person, Mood/affect- Flat affect. Speech- Limited, short answers. I do not know. Thought content- REduced. Associations- intact, no SI/HI, no hallucinations, delusions, obsessions. Judgment/insight- Inappropriate. Memory/Knowledge: Limited Unable to give month, year, age. He said he was 21. This was after numerous minutes of random numbers. I asked if we had met and he told me it was at the bar. I reintroduced myself. Lymphatic: Head/Neck- normal size and non tender to palpation. Axillary- normal size and non tender to palpation. Femoral and Inguinal- normal size and non tender to palpation. Plan: 1. Discharge to nursing facility 2. Complete 3 days of oral abx 3. Resume home meds 4. Discussed hospice with family, not interested at this time. 5. Dr. Whelan to resume care at end of 05/2018. I would like a CBC, CMP, Urinalysis and Urine culture in 5 days. Consider CXR in 4-6 weeks. >30 minutes spent in discharge patient, completing med rec, preparing for discharge to [facility], reviewing last labs, overnight telemetry, talking with nursing, day of discharge exam. This time did not include completing documentation.
[2018-05-02] MEDS: LOVENOX SUBCUT SCH (09:10)
[2018-05-02] MEDS: CALCIUM 500 + VIT D 200 MG TABLET PO SCH (09:10)
[2018-05-02] MEDS: FLORASTOR PO SCH (09:10)
[2018-05-02] MEDS: SEROQUEL PO SCH (09:10)
[2018-05-02] MEDS: ASPIRIN CHEWABLE PO SCH (09:10)
[2018-05-02] MEDS: PLAVIX PO SCH (09:10)
[2018-05-02] MEDS: MEDROXYPROGESTERONE ACETATE 10 MG PO SCH (09:11)
[2018-05-02 09:19] VITALS: BP 118/75; TEMP 98.5
== END 2018-05-02 09:52 | disposition short-term general hospital (02) | DRG 640 ==
LOC: ED 13:03 → MEDSURG B 15:36
PROVIDERS: ADMIT Family Medicine; ATTEND Family Medicine
DX: R62.7 Adult failure to thrive (principal); J18.9 Pneumonia, unspecified organism; N39.0 Urinary tract infection, site not specified; R53.81 Other malaise; R41.82 Altered mental status, unspecified; R41.0 Disorientation, unspecified; R26.9 Unspecified abnormalities of gait and mobility; R26.89 Other abnormalities of gait and mobility
CPT/HCPCS: 36415; 80053; 81001; 85025; 87086; 93005; 93010; 96365; 97802; 99284

== ENCOUNTER 2018-05-12 07:34 | Outpatient (CLI) | END 2018-05-12 07:35 | disposition home or self-care (01) | LOC: LAB 07:34 | PROVIDERS: ATTEND General Practice | DX: N39.0 Urinary tract infection, site not specified (principal) | CPT/HCPCS: 81001; 87086 ==

== ENCOUNTER 2018-05-15 06:51 | Outpatient (CLI) | payer OTHER | END 2018-05-15 06:52 | disposition home or self-care (01) | LOC: NONPT 06:51 | PROVIDERS: ATTEND General Practice | DX: N39.0 Urinary tract infection, site not specified (principal) | CPT/HCPCS: 81001; 87086 ==

== ENCOUNTER 2018-09-02 15:24 | Outpatient (CLI) | payer OTHER ==
[2018-08-26 20:51] VITALS: BMI 20.2
== END 2018-09-02 15:31 ==
LOC: AMBL 15:24
PROVIDERS: ATTEND Internal Medicine
DX: R53.1 Weakness (principal); Z74.01 Bed confinement status